=== PATIENT | male | born 1965 | race Caucasian/White ===

== ENCOUNTER 2020-12-29 00:31 | Inpatient (IN) | payer OTHER, SELFPAY ==
[2020-12-29] VITALS (48 sets, daily range): BP systolic 101–176; BP diastolic 60–107; PULSE 43–88; RESP 13–25; TEMP 36–36.8; O2SAT 96–100; BMI 28.8
--- NOTE | 2020-12-29 | EST_ITS ---
Patient Info Name: Jairo Junior Age: 55 years : 1965 Gender: Male Ht: 73 in Wt: 218 lbs BSA: 2.28 m2 HR: 65 bpm BP: 132 / 83 mmHg Heart Rhythm: Sinus Rhythm Exam Date: 12/29/2020 11:15 AM Exam Location: [facility] Stress Patient Status: Outpatient Admit Date: 12/29/2020 Staff Ordering Physician: Maurice Stone DO Attending Provider: Crys Szymanski MD Exercise Technologist: Carmen May CT Exercise Physician: Maurice Stone DO Exam Type: CA stress nisha w NM Study Info Indications R07.9 - Chest pain, unspecified A regadenoson stress test was performed. Summary 1. 1. Negative lexiscan stress test for ischemic ST changes by ECG criteria. 2. 2. Stable hemodynamics throughout the test. 3. 3. Nuclear scan to follow and will be reported separately. Please correlate with it. 4. 4. Patient informed of the above results. Protocol: Lexiscan Stress ECG Details Stage: REST Duration (min): 0 min : 59 sec HR (bpm): 67 SBP (mmHg): 132 DBP (mmHg): 83 Stage: REST Duration (min): 12 min : 31 sec HR (bpm): 70 SBP (mmHg): 132 DBP (mmHg): 83 Stage: STAGE 1 Duration (min): 1 min : 0 sec HR (bpm): 118 SBP (mmHg): 127 DBP (mmHg): 72 Stage: RECOVERY Duration (min): 1 min : 0 sec HR (bpm): 99 SBP (mmHg): 127 DBP (mmHg): 72 Stage: RECOVERY Duration (min): 2 min : 0 sec HR (bpm): 85 SBP (mmHg): 127 DBP (mmHg): 72 Stage: RECOVERY Duration (min): 3 min : 0 sec HR (bpm): 76 SBP (mmHg): 117 DBP (mmHg): 72 Stage: RECOVERY Duration (min): 3 min : 2 sec HR (bpm): 75 SBP (mmHg): 117 DBP (mmHg): 72 Rest HR: 70 bpm Peak HR: 118 bpm Rest Sys BP: 132 mmHg Peak Sys BP: 127 mmHg Max Pred HR: 166 bpm % Max Pred HR: 71 % Target HR: 141 bpm Max RPP: 14,986 bpm*mmHg Termination Reason: Completed protocol Cardiac Symptoms: Shortness of breath Total Time: 1 min : 0 sec Rest Reyes BP: 83 mmHg Peak Reyes BP: 72 mmHg Total Dose: 0.4 mg Resting ECG Sinus rhythm. Stress ECG No ST changes. Arrhythmias None. Report Signatures
--- NOTE | ~2020-12-29 | CT_ITS ---
EXAMINATION: CT soft tissue neck wo con DATE: 12/29/2020 02:35 INDICATION: Throat pain, odynophagia TECHNIQUE: Computed tomography (CT) of the neck was performed without intravenous contrast. The dose- length product (DLP) was 650.87 mGy-cm. Automated exposure control and iterative reconstruction techn ique were employed. COMPARISON: None FINDINGS: There is calcified atherosclerosis of the carotid arteries, left greater than right. Contra st from earlier CT examination partially opacifies the vasculature. The left carotid artery does not opacify beyond its proximal portion. There is left-sided intracranial flow related to collateral circ ulation. The thyroid gland is unremarkable. The submandibular and parotid glands are symmetric. There is no lymphadenopathy. There are no masses identified. The airway is unremarkable. There is moderate cervical spondylosis at C5-6. The orbits are unremarkable. The superior mediastinum is unremarkable. There are changes of partial left mastoidectomy. There is mild mucosal thickening of the paranasal s inuses. IMPRESSION: 1. Findings consistent with occlusion of the left carotid artery. Reviewed, dictated and finalized at location A.
--- NOTE | ~2020-12-29 | NM_ITS ---
EXAMINATION: NM nisha stress w perfusion DATE: 12/29/2020 12:23 INDICATION: Chest pain. TECHNIQUE: Rest images were obtained following intravenous administration of 10 mCi Tc99m tetrofosmin (Myoview). The patient was infused intravenously with Lexiscan (regadenoson). Then, 30 mCi Tc99m tet rofosmin (Myoview) was administered intravenously, and stress images were obtained. Data was reconstr ucted into short axis and horizontal and vertical long axis SPECT images. Gated SPECT images were als o obtained. COMPARISON: Chest CT 12/29/2020 FINDINGS: There is a small, severe, reversible perfusion defect involving mid to basal inferior wall of the left ventricle, consistent with ischemia. There is a small, severe, partially reversible perfu dianelys defect involving mid to basal inferolateral wall of left ventricle, consistent with mixed infarc t and ischemia. There is no segmental wall motion abnormality. Left ventricular ejection fraction me asures >70%. IMPRESSION: 1. Small area of severe ischemia involving mid to basal inferior wall of left ventricle. 2. Small area of severe mixed ischemia and infarct involving mid to basal inferolateral wall of left ventricle. 3. Normal left ventricular ejection fraction measuring >70%. Reviewed, dictated and finalized at location A. IMPRESSION: 1. Small area of severe ischemia involving mid to basal inferior wall of left v entricle. 2. Small area of severe mixed ischemia and infarct involving mid to basal infer olateral wall of left ventricle. 3. Normal left ventricular ejection fraction measuring >70%.
--- NOTE | ~2020-12-29 | XR_ITS ---
EXAMINATION: XR chest 2V DATE: 12/29/2020 01:03 INDICATION: Chest pain and hypertension TECHNIQUE: PA and lateral views of the chest are obtained. COMPARISON: None available FINDINGS: The lungs are free of acute opacities. There is no pleural effusion or pneumothorax. The ca rdiomediastinal silhouette is normal. The visualized bones and soft tissues are unremarkable. IMPRESSION: 1. No acute cardiopulmonary abnormality. Reviewed, dictated and finalized at location A.
--- NOTE | ~2020-12-29 | CT_ITS ---
EXAMINATION: CTA chest DATE: 12/29/2020 02:32 INDICATION: Chest pain TECHNIQUE: Computed tomographic angiography (CTA) of the chest was performed with 100 mL Omnipque-350 intravenous contrast. Maximum intensity projection 3D-reconstructions of the aorta and other arterie s were constructed by the technologist on a separate workstation. The dose-length product (DLP) was 9 27.80 mGy-cm. Automated exposure control and iterative reconstruction technique were employed. COMPARISON: None. FINDINGS: The thoracic aorta is normal without dissection or aneurysm. Calcified coronary artery athe rosclerosis is noted. There is absent flow in the left internal carotid artery approximately 3 cm bey ond its origin. There is dependent atelectasis. No pleural effusion or pneumothorax is identified. No pathologically enlarged thoracic lymph nodes are identified. The heart size is normal. There is mild thoracic spondylosis. IMPRESSION: 1. No aneurysm or dissection of the thoracic aorta. 2. Absent flow beyond the proximal left internal carotid artery. Carotid Doppler ultrasound is recomm ended. Reviewed, dictated and finalized at location A. IMPRESSION: 1. No aneurysm or dissection of the thoracic aorta. 2. Absent flow beyond the proximal left internal carotid artery. Carotid Dopple r ultrasound is recommended.
--- NOTE | ~2020-12-29 | US_ITS ---
EXAMINATION: US carotid duplex BI EXAM DATE: 12/29/2020 12:45 INDICATION: Absent flow beyond proximal left internal carotid. Abnormal pulmonary scan. TECHNIQUE: Grayscale, color and pulsed Doppler images of the cervical carotid arteries were obtained . The degree of vessel stenosis is placed in one of the following categories: normal, <50% stenosis, 50-69% stenosis, >=70% stenosis but less than near-occlusion, near-occlusion, or occlusion. Note that percent stenosis relative to normal distal artery lumen diameter is indirectly measured from velocit y measurements as described by Alex, et al. Radiology 2003; 229:340-346. Correlation is made to CTA chest, CT neck earlier same date. Comparison is made to prior examination from carotid ultrasound 12/08/2012. FINDINGS: RIGHT SIDE: Right common carotid artery peak systolic velocity (PSV in cm/s): 95 Right bulb/internal carotid artery peak systolic velocity (PSV in cm/s): 166 Right internal carotid artery end diastolic velocity (EDV in cm/s): 47 Right ICA/CCA peak systolic ratio: 1.7 Right external carotid artery peak systolic velocity (PSV in cm/s): 155 Right vertebral artery antegrade flow: yes There is mild to moderate carotid bulb plaque with discordant mildly elevated velocity. Visually, less than 50% stenosis category. LEFT SIDE: Left common carotid artery peak systolic velocity (PSV in cm/s): 48 Left bulb/internal carotid artery peak systolic velocity (PSV in cm/s): No flow Left internal carotid artery end diastolic velocity (EDV in cm/s): No flow Left external carotid artery peak systolic velocity (PSV in cm/s): 61 Left vertebral artery antegrade flow: yes There is high resistance common carotid arterial flow. Completely occluded left ICA, likely due to at herosclerosis. In 2013 there was mild to moderate carotid bulb plaque, with normal velocities. IMPRESSION: 1. Less than 50 percent stenosis in the right internal carotid artery. 2. Occluded left internal carotid artery. Reviewed, dictated and finalized at location B.
--- NOTE | 2020-12-29 00:34 | ECG_ITS ---
Measurements Intervals [place] Rate: 58 P: 12 PA: 258 QRS: 64 QRSD: 104 T: 17 QT: 406 QTc: 402 Interpretive Statements SINUS BRADYCARDIA WITH FIRST DEGREE AV BLOCK BASELINE ARTIFACT- II, III, AVF, V3-V6 ABNORMAL ECG Electronically Signed On 12-29-2020 5:39:39 CDT by Maurice Stone D.O.
[2020-12-29 01:13] LABS: Basophils Absolute Auto 0.1 K/mm3 (0.0-0.1); Basophils Percent Auto 0.6 % (0.2-1.2); Eosinophils Absolute Auto 0.6 K/mm3 (0-0.3); Eosinophils Percent Auto 6.5 % (0-4.4); Hematocrit 49.7 % (42.0-52.0); Hemoglobin 16.8 g/dL (14.0-18.0); Immature Granulocyte Absolute 0.02 K/mm3 (0.00-0.031); Immature Granulocyte Percent A 0.2 % (0-0.5); Lymphocytes Absolute Auto 3.36 K/mm3 (0.9-3.2); Lymphocytes Percent Auto 34.9 % (18.3-44.2); Mean Corpuscular HGB Conc 33.8 g/dl (32-36); Mean Corpuscular Hemoglobin 32.1 pg (26-34); Mean Platelet Volume 10.6 fl (7.4-10.4); Monocytes Absolute Auto 0.8 K/mm3 (0.1-0.6); Monocytes Percent Auto 8.2 % (2.6-8.5); Neutrophils Absolute Auto 4.8 K/mm3 (1.3-6.7); Neutrophils Percent Auto 49.6 % (45.5-73.1); Platelet Count Result 230 k/mm3 (150-375); Red Blood Count 5.23 M/mm3 (4.6-6.20); White Blood Count 9.6 K/mm3 (4.5-10.0)
[2020-12-29] MEDS: NITROGLYCERIN SL 0.4 MG TABLET SUBLINGUAL (01:21)
[2020-12-29 01:22] LABS: INR 0.9; Prothrombin Time 11.7 Seconds (11.1-14.7)
[2020-12-29] MEDS: ONDANSETRON INJ 4 MG/2 ML VIAL IV PUSH ×3 (01:22→22:08)
[2020-12-29 01:23] LABS: Partial Thromboplastin Time 28.7 SECONDS (22.3-36.8)
--- NOTE | 2020-12-29 01:28 | PC.NURSE ---
RN administered 1 nitro tab SL pt. reports feeling chest heaviness and nausea. pt. stat up and provided vomit bag. pt. placed in Trendelenburg and RN went to get vorb for 1L NS due to pt. bp dropping from 168/100 to 123/90. 0127 PT. HR dropped to 33. pt. alert and oriented still at this time. 0129 erp at beside. 0130 pt. has 1L NS intiated and pt. states Im feeling better. pt HR 60 BP
[2020-12-29 01:42] LABS: Anion Gap 7 mmol/L (8-16); Blood Urea Nitrogen 24 mg/dL (9-20); Calcium 9.6 mg/dL (8.4-10.2); Carbon Dioxide 27 mmol/L (22-30); Chloride 105 mmol/L (98-107); Estimated CRCL calculation 71 ml/min; Estimated Glomerular Filt Rate > 60; Glucose 117 mg/dL (65-110); Potassium 4.5 mmol/L (3.4-5.0); Sodium 139 mmol/L (137-145)
--- NOTE | 2020-12-29 01:45 | ED.GENADULT ---
HPI - General Adult General Chief complaint: Chest Pain Stated complaint: n/v Time Seen by Provider: 12/29/20 00:46 Source: patient and RN notes reviewed Mode of arrival: ambulatory Limitations: no limitations History of Present Illness HPI narrative: This is a 55 year old male with history of hypertension and hyperlipidemia who presents for evaluation of sore throat, nausea and vomiting. Patient states he has been having sore throat intermittently since Saturday. He states his throat pain has worsened tonight and he had associated weakness, diaphoresis, nausea and vomiting. He states his throat pain was noticeable more when he was exerting himself. He states he was walking and breathing in cold air and it worsened his throat pain. He denies neck pain, cough, headache, runny nose, or fever. He also reports intermittent midsternal chest pressure that has resolved now. Related Data Home Medications Medication Instructions Recorded Confirmed diphenhydramine HCl 25 mg tablet 12.5 mg PO QHS PRN tablet 05/03/20 11/14/20 multivitamin 1 tablet PO DAILY 07/26/20 11/14/20 vitamin B complex 1 tablet PO DAILY 07/26/20 11/14/20 Allergies Allergy/AdvReac Type Severity Reaction Status Date / Time No Known Allergies Allergy Verified 12/29/20 01:17 Review of Systems Review of Systems: All systems reviewed & are unremarkable except as noted in HPI and below Constitutional: Constitutional: Denies chills, Reports fatigue and Denies fever(s) Cardiovascular: Cardiovascular: Reports chest pain and Denies rapid heart rate Respiratory: Respiratory: Denies cough and Reports dyspnea Gastrointestinal: Gastrointestinal: Denies abdominal pain, Reports diarrhea and Reports nausea Neurologic: Denies headache(s) [facility] Past Medical History Medical History (Updated 12/29/20 @ 06:16 by Bianka Rodrigues MD) Asthma Chronic vertigo Enlarged prostate Essential (primary) hypertension Hyperlipidemia Nocturia Ocular migraine Renal agenesis Renal calculus Seasonal allergies TIA (transient ischemic attack) (~2012) Surgical History Surgical History History of colonoscopy with polypectomy (~05/02/17) Dr. Ledezma repeat in 5 years. History of ear surgery (~2010) semicircular canal surgery - left ear Family History Family History (Updated 12/29/20 @ 06:05 by Guillermo Nicole RN) Father Diabetes mellitus Family history of Parkinson's disease Mother Cerebrovascular accident Social History Social History Smoking status: Never smoker Alcohol intake: current Drinks per week: 1 Substance use: never Spiritual care concerns: No Exam Const: General: alert and ill appearing Orientation/consciousness: patient oriented x3 HENMT: Head: normocephalic and atraumatic Face and sinus: face symmetric Mouth: Yes Normal oral and palatal mucosa present, Yes lip normal, Yes oropharynx normal and Yes moist mucous membranes Throat: posterior oropharynx normal, tonsils normal and uvula midline Eyes: Pupils: Equal, round and reactive pupils present EOM: EOMs intact bilaterally Neck: Neck: normal visual inspection and no lymphadenopathy Resp: Effort & Inspection: normal respiratory effort and no retractions Auscultation: clear to auscultation bilaterally Cardio: Rate: regular rate Rhythm: regular rhythm Heart sounds: no murmurs GI: GI Palp: Yes Soft to palpation, No Tenderness to palpation present (GI) and No Guarding due to palpation present (GI) Auscultation: normal bowel sounds Skin: General skin exam: normal color Rashes: no rashes Neuro: General: patient oriented x3, moves all extremities and CN's II-XI intact bilaterally Extrem: General: normal to inspection Psych: Mental Status: mental status grossly normal Affect: normal affect Course Reevaluation(s) Reevaluation #1: Patient was given sublingual
--- NOTE | 2020-12-29 01:53 | ECG_ITS ---
Measurements Intervals [place] Rate: 72 P: -30 CA: 168 QRS: 141 QRSD: 86 T: 149 QT: 368 QTc: 404 Interpretive Statements SINUS RHYTHM RIGHT AXIS DEVIATION LOW QRS VOLTAGE IN LIMB LEADS CANNOT RULE OUT SEPTAL INFARCT, AGE INDETERMINATE BORDERLINE ST-T WAVE ABNORMALITY- ANTEROLAT/HIGH LAT LEADS ABNORMAL ECG Electronically Signed On 12-29-2020 5:40:55 CDT by Maurice Stone D.O.
[2020-12-29 01:58] LABS: Troponin I 0.061 ng/mL (0.000-0.034)
--- NOTE | 2020-12-29 02:24 | PC.NURSE ---
pt.to ct
[2020-12-29] MEDS: MORPHINE SULFATE (*CRX) 4 MG/ML INJ IV PUSH (02:35)
--- NOTE | 2020-12-29 03:49 | PC.NURSE ---
Rn at bedside to draw repeat lab work on pt. pt. became diaphoretic and states I am hypioglycemic Im going to passout. pt. has HR of 33 on monitor. 0348 ERP at bedside. 0349 Pt. placed in Trendelenburg and placed back on cardiac nurse specialist. 0350 HR 53. Pt. alert and oriented x4
[2020-12-29 03:52] LABS: Glucose Point of Care 130 mg/dl (65-105)
--- NOTE | 2020-12-29 04:05 | PM.IMHP ---
H&P: HPI History of Present Illness Date/Time: 12/29/20 04:05 Chief Complaint: CHEST DISCOMFORT Narrative: This is a 55-year-old male with past medical history significant for gastroesophageal reflux disease, ocular migraine, renal agenesis, renal calculus, seasonal allergies. Patient presented to the emergency room after he woke up in the middle of the night with reflux pain', patient states that this started over the weekend he started having retrosternal chest pain and throat pain has been eating a bland diet and had to okay days but then it came back and has been worse he has been taking Mylanta, in emergency room patient received nitro morphine and aspirin which relieved the pain. While the nurse was drawing blood patient had a vasovagal episode where he Aubrey down and pacer pads were placed on him ever since patient has remained in sinus rhythm and heart rate in the 70s at the time of my visit patient states that he has passed out before with blood draws. Patient denies any chest pain at aches section or activities, no leg pain no claudication, no PND no orthopnea, no palpitations, no fevers no chills no rigors no odynophagia or dysphagia however has sensation of something stuck in his throat he is able to swallow his own secretions. Preliminary workup has been essentially nonrevealing. Review of Systems Review of Systems: Reflux pain Constitutional: Constitutional: Denies chills, Denies fatigue, Denies fever(s), Denies lethargy, Denies malaise and Denies weakness Eyes: Eyes: Denies change in vision ENT: Denies dysphagia, Denies vertigo, Denies dizziness, Denies nasal congestion, Denies nasal discharge, Denies nasal obstruction and Denies odynophagia Cardiovascular: Cardiovascular: Denies chest pain at rest, Denies irregular heart rhythm, Denies claudication, Denies leg edema, Denies lightheadedness, Denies radiating jaw, neck or arm pain, Denies palpitations, Denies dyspnea and Denies dyspnea on exertion Respiratory: Respiratory: Denies cough, Denies excessive phlegm production and Denies dyspnea Gastrointestinal: Gastrointestinal: Denies abdominal pain, Reports heartburn, Reports diarrhea, Denies nausea and Denies vomiting Genitourinary: Genitourinary: Reports as per HPI Musculoskeletal: Musculoskeletal: Denies arthralgias, Denies joint swelling and Denies muscle cramps Integumentary/Breasts: Skin/Breast: Denies rash Neurologic: Denies vertigo, Denies dizziness, Denies focal weakness and Denies Sensory deficit (Neuro) Psychiatric: Psychiatric: Reports as per HPI Endocrine: Endocrine: Denies polyphagia, Denies polydipsia and Denies palpitations Hematologic/Lymphatic: Hematologic/Lymphatic: Reports as per HPI Allergic/Immunologic: Allergic/Immunologic: Reports as per HPI PMFSH Past Medical History Medical History (Updated 12/29/20 @ 04:52 by Crys Szymanski MD) Asthma Chronic vertigo Enlarged prostate Essential (primary) hypertension Hyperlipidemia Nocturia Ocular migraine Renal agenesis Renal calculus Seasonal allergies TIA (transient ischemic attack) (~2012) Surgical History Surgical History History of colonoscopy with polypectomy (~05/02/17) Dr. Ledezma repeat in 5 years. History of ear surgery (~2010) semicircular canal surgery - left ear Family History Family History Father Diabetes mellitus Family history of Parkinson's disease Social History Social History Smoking status: Never smoker Alcohol intake: current Meds Home Medications and Allergies Home Medications Medication Instructions Recorded Confirmed Type aspirin 325 mg tablet 325 mg PO DAILY 05/03/20 11/14/20 History diphenhydramine HCl 25 mg tablet 12.5 mg PO QHS PRN tablet 05/03/20 11/14/20 History multivitamin 1 tablet PO DAILY 07/26/20 11/14/20 History vitam
[2020-12-29] MEDS: ASPIRIN 81 MG CHEWABLE TABLET 324 MG PO (04:10)
[2020-12-29 04:38] LABS: Troponin I 0.089 ng/mL (0.000-0.034)
[2020-12-29] MEDS: BELLADONNA ALK/PHENOB ELIX 10 ML, MAG HYDROX/ALUMINUM HYD/SIMETH 30 ML, LIDOCAINE HCL 2... PO (04:48)
[2020-12-29] MEDS: PANTOPRAZOLE SODIUM IV 40 MG VIAL 80 MG IV PUSH (04:51)
--- NOTE | 2020-12-29 06:49 | PM.CNCAR ---
Assessment and Plan Assessment and plan (1) Chest pain: Code(s): R07.9 - Chest pain, unspecified Status: Acute Assessment and Plan: Atypical symptoms for ACS. Could be GERD. Troponin mild but trending up. Follow troponin to peak. EKG unremarkable. Obtain lexiscan myoview stress test and echo. (2) Vasovagal episode: Code(s): R55 - Syncope and collapse Status: Acute Assessment and Plan: Stable. (3) GERD (gastroesophageal reflux disease): Code(s): K21.9 - Gastro-esophageal reflux disease without esophagitis Status: Acute (4) Essential (primary) hypertension: Code(s): I10 - Essential (primary) hypertension Status: Acute Assessment and Plan: Stable. (5) Hyperlipidemia: Qualifiers: Hyperlipidemia type: unspecified Qualified Code(s): E78.5 - Hyperlipidemia, unspecified Code(s): E78.5 - Hyperlipidemia, unspecified Status: Acute Assessment and Plan: On Lovastatin. History of Present Illness History of Present Illness Consult date/time: 12/29/20 06:49 Reason for consult: Chest pain. 55 yr old man presented to ER for chest pain. He has a history of hypertension, dyslipidemia, GERD. Reports that for the last 7 days he has been having chest burning sensation and discomfort when lying down. Pain radiated to his throat and jaw. He had a recent chip tooth requiring a crown. He would sit up and it would improve, and then he would take Mylanta and it would help. Last night however, his symptoms did not improve with either maneuver so he came in to ER. Symptoms have currently resolved with morphine, NTG and aspirin. He did have diarrhea last night. He can walk several blocks without any problems. In ED while drawing his blood, he had a vasovagal episode where his HR dropped to 30's bpm for a couple of minutes. He states he has that problem in the past. Trop .061 then .089. EKG: Sinus rhythm. CBC and CMP are OK. CTA neck and chest are pending. Reason For Visit: elevated troponin, intermittent cristino cardia with Review of Systems Review of Systems: All systems reviewed & are unremarkable except as noted in HPI and below Constitutional: Constitutional: Reports as per HPI, Denies chills and Denies fever(s) Cardiovascular: Cardiovascular: Reports as per HPI, Reports chest pain, Denies irregular heart rhythm, Denies leg edema and Denies lightheadedness Respiratory: Respiratory: Reports as per HPI and Denies dyspnea Gastrointestinal: Gastrointestinal: Reports as per HPI, Denies abdominal pain, Reports heartburn and Reports diarrhea Genitourinary: Genitourinary: Reports as per HPI and Denies dysuria Musculoskeletal: Musculoskeletal: Reports as per HPI Neurologic: Reports as per HPI, Denies dizziness and Denies syncope [facility] Past Medical History Medical History (Updated 12/29/20 @ 06:16 by Bianka Rodrigues MD) Asthma Chronic vertigo Enlarged prostate Essential (primary) hypertension Hyperlipidemia Nocturia Ocular migraine Renal agenesis Renal calculus Seasonal allergies TIA (transient ischemic attack) (~2012) Surgical History Surgical History History of colonoscopy with polypectomy (~05/02/17) Dr. Ledezma repeat in 5 years. History of ear surgery (~2010) semicircular canal surgery - left ear Family History Family History (Updated 12/29/20 @ 06:05 by Guillermo Nicole RN) Father Diabetes mellitus Family history of Parkinson's disease Mother Cerebrovascular accident Social History Social History Smoking status: Never smoker Alcohol intake: current Drinks per week: 1 Substance use: never Spiritual care concerns: No Meds Home Medications and Allergies Home Medications Medication Instructions Recorded Confirmed Type diphenhydramine HCl 25 mg tablet 12.5 mg PO QHS PRN tabl
[2020-12-29] MEDS: LACTATED RINGERS 1,000 ML 100 ML IV CONT ×2 (10:20→22:08)
--- NOTE | 2020-12-29 12:24 | WPDCNINT ---
Assessment and Plan Assessment and plan (1) Chest pain: Code(s): R07.9 - Chest pain, unspecified Status: Acute Assessment and Plan: Chest pain with radiation to the jaw and throat -12/29/20: NM stress scan was positive Small area of severe ischemia involving mid to basal inferior wall of left ventricle. 2. Small area of severe mixed ischemia and infarct involving mid to basal inferolateral wall of left ventricle. 3. Normal left ventricular ejection fraction measuring >70% D/w with Dr Stone, updated with the above results, he stated that patient will require cardiac catheterization, will be discussing with heart care group. Will keep patient NPO for now, start heparin infusion and aspirin (2) Bradycardia: Code(s): R00.1 - Bradycardia, unspecified Status: Acute Assessment and Plan: Patient with episodes of bradycardia be related to vasovagal add or ischemic heart disease -will hold beta-shane for now due to bradycardic episodes (3) GERD (gastroesophageal reflux disease): Code(s): K21.9 - Gastro-esophageal reflux disease without esophagitis Status: Acute Assessment and Plan: Continue Protonix (4) Occlusion of left internal carotid artery: Code(s): I65.22 - Occlusion and stenosis of left carotid artery Status: Acute Assessment and Plan: 12/29/2020 Carotid Doppler study: Occluded left internal carotid artery, less than 50% stenosis in the right internal carotid artery -patient started on heparin infusion -once patient has his cardiac workup done he to be transferred for vascular surgery to an outside facility (5) Suspected 2019 novel coronavirus infection: Code(s): Z20.822 - Contact with and (suspected) exposure to COVID-19 Status: Acute Assessment and Plan: SARS-CoV-2 PCR pending Additional Plan Discussed with patient updated with his condition and plan of care. He is aware that he will be getting a cardiac catheterization at some point today or tomorrow depending on the availability of the art gilder Code status: Full code Critical care time spent: 47 minutes This dictation may have been done utilizing a voice recognition system. Attempts have been made to correct errors. However, there may be uncorrected grammatical, spelling, and recognition errors present. Due to a high probability of clinically significant, life threatening deterioration, the patient required my highest level of preparedness to intervene emergently and I personally spent this critical care time directly and personally managing the patient. This critical care time included obtaining a history; examining the patient; pulse oximetry; ordering and review of studies; arranging urgent treatment with development of a management plan; evaluation of patient's response to treatment; frequent reassessment; and discussions with other providers. It was exclusive of separately billable procedures and treating other patients and teaching time. Please see Assessment and Plan section and the rest of the note for further information on patient assessment and treatment Equipment [id number] Consult Note Consult date: 12/29/20 Time Seen: 06:55 Reason for consult: Chest pain, bradycardia, left carotid artery occlusion HPI: Jairo Junior is a 55 year old male with past medical history of asthma, vertigo, and large prostate, essential hypertension, hyperlipidemia, nocturia, migraine, renal agenesis, TIA in 2012 presented to the ED on 12/29/2020 with complains of chest pain/heartburn, nausea and vomiting along with sore throat. Stated that the pain radiates to his throat and jaw. He stated that his chest pain improved when he would sit up and when he took Mylanta. Chest pain resolved with morphine, nitroglycerin aspirin. He also complained of diarrhea. In the ER was the withdrawing his blood patient did have an episode of bradycardia in the 30s instead resolved. According the records patient sta
[2020-12-29] MEDS: HEPARIN SODIUM 5,000 UNITS/ML VIAL 4000 UNITS IV PUSH (13:19)
[2020-12-29] MEDS: HEPARIN SOD/D5W 100 UNITS/ML 25,000 UNITS/250 ML BAG 10 UNITS IV CONT (13:20)
[2020-12-29 13:34] LABS: Basophils Percent Auto 0.3 % (0.2-1.2); Eosinophils Percent Auto 0.1 % (0-4.4); Hematocrit 46.7 % (42.0-52.0); Hemoglobin 16.2 g/dL (14.0-18.0); Immature Granulocyte Absolute 0.02 K/mm3 (0.00-0.031); Immature Granulocyte Percent A 0.2 % (0-0.5); Lymphocytes Absolute Auto 0.99 K/mm3 (0.9-3.2); Lymphocytes Percent Auto 9.8 % (18.3-44.2); Mean Corpuscular HGB Conc 34.7 g/dl (32-36); Mean Corpuscular Hemoglobin 33.1 pg (26-34); Mean Corpuscular Volume 95.5 fl (80-100); Mean Platelet Volume 10.5 fl (7.4-10.4); Monocytes Absolute Auto 0.4 K/mm3 (0.1-0.6); Monocytes Percent Auto 3.8 % (2.6-8.5); Neutrophils Absolute Auto 8.7 K/mm3 (1.3-6.7); Neutrophils Percent Auto 85.8 % (45.5-73.1); Platelet Count Result 213 k/mm3 (150-375); Red Blood Count 4.89 M/mm3 (4.6-6.20); Red Cell Distribution Width 11.9 % (11.5-14.5); White Blood Count 10.1 K/mm3 (4.5-10.0)
[2020-12-29] MEDS: LOSARTAN POTASSIUM 100 MG TABLET PO (13:38)
[2020-12-29 13:55] LABS: INR 0.9; Partial Thromboplastin Time 24.7 SECONDS (22.3-36.8); Prothrombin Time 12.2 Seconds (11.1-14.7)
[2020-12-29 17:33] LABS: SARS-CoV-2 RNA PCR Negative
[2020-12-29 19:47] LABS: Partial Thromboplastin Time 65.3 SECONDS (22.3-36.8)
[2020-12-29] MEDS: HEPARIN SODIUM 5,000 UNITS/ML VIAL 3500 UNITS IV PUSH (21:23)
[2020-12-30] VITALS (19 sets, daily range): BP systolic 121–138; BP diastolic 63–110; PULSE 61–74; RESP 14–22; TEMP 36.3–37.2; O2SAT 95–99
--- NOTE | 2020-12-30 | ECHO_ITS ---
Patient Info Name: Jairo Junior Age: 55 years : 1965 Gender: Male Ht: 73 in Wt: 218 lbs BSA: 2.28 m2 BP: 121 / 72 mmHg Exam Date: 12/30/2020 8:26 AM Exam Location: [facility] Pulmonary Patient Status: Outpatient Admit Date: 12/29/2020 Staff Ordering Physician: Maurice Stone DO Director Of Anesthesia Services: Praful Reynoso RDCS, RT Attending Provider: Crys Szymanski MD Referring Physician: Chase HU; Exam Type: CA echo doppler color flow Study Info Indications R07.9 - Chest pain, unspecified Complete two-dimensional, color flow and Doppler transthoracic echocardiogram is performed. Strain analysis performed. Summary 1. Complete two-dimensional, color flow and Doppler transthoracic echocardiogram is performed. 2. Left ventricular chamber dimension is normal. 3. Definity contrast administered improved wall motion interpretation. 4. Basal inferior wall and basal to mid posterior wall segments are hypokinetic. 5. Left ventricular systolic function is normal, estimated at 60-65%. 6. There is mildly increased left ventricular wall thickness. 7. The left ventricular diastolic function is grade I diastolic dysfunction. 8. E/e' 9 is minimally elevated. 9. Global longitudinal strain is abnormal at -12.2%. 10. There is moderate aortic valve sclerosis. 11. There is mild aortic valve regurgitation. 12. There is mild mitral valve regurgitation. 13. There is trace tricuspid valve regurgitation. 14. There is trace pulmonic regurgitation. Left Ventricle Definity contrast administered improved wall motion interpretation. E/e' 9 is minimally elevated. Global longitudinal strain is abnormal at -12.2%. Basal inferior wall and basal to mid posterior wall segments are hypokinetic. Left ventricular chamber dimension is normal. Left ventricular systolic function is normal, estimated at 60-65%. There is mildly increased left ventricular wall thickness. The left ventricular diastolic function is grade I diastolic dysfunction. Right Ventricle Right ventricular systolic function is normal and with normal TAPSE 2.7 cm. Right ventricular chamber dimension is normal. Left Atria Left atrial chamber dimension is normal. Right Atria Right atrial chamber dimension is normal. Aortic Valve The aortic valve is trileaflet. There is moderate aortic valve sclerosis. There is no aortic valve stenosis. There is mild aortic valve regurgitation. Pulmonic Valve There is trace pulmonic regurgitation. Mitral Valve There is no mitral valve stenosis. There is mild mitral valve regurgitation. Tricuspid Valve There is trace tricuspid valve regurgitation. RVSP is not calcuated due to an inadequate TR jet. Pericardium/Pleural There is no pericardial effusion. Inferior Vena Cava Normal inferior vena cava with >50% collapse upon inspiration consistent with normal right atrial pressure, 5 mmHg. Aorta The aortic root size at the sinus of Valsalva is normal. Left Ventricular Outflow Tract Name Value Normal LVOT 2D LVOT Diameter 2.0 cm LVOT Doppler LVOT Peak Gradient 3 mmHg LVOT Mean Gradient
[2020-12-30 04:08] LABS: Basophils Percent Auto 0.3 % (0.2-1.2); Eosinophils Absolute Auto 0.1 K/mm3 (0-0.3); Eosinophils Percent Auto 0.8 % (0-4.4); Hematocrit 43.8 % (42.0-52.0); Hemoglobin 14.8 g/dL (14.0-18.0); Immature Granulocyte Absolute 0.04 K/mm3 (0.00-0.031); Immature Granulocyte Percent A 0.3 % (0-0.5); Lymphocytes Absolute Auto 2.14 K/mm3 (0.9-3.2); Lymphocytes Percent Auto 17.8 % (18.3-44.2); Mean Corpuscular HGB Conc 33.8 g/dl (32-36); Mean Corpuscular Hemoglobin 32.2 pg (26-34); Mean Corpuscular Volume 95.2 fl (80-100); Mean Platelet Volume 10.7 fl (7.4-10.4); Monocytes Absolute Auto 0.8 K/mm3 (0.1-0.6); Monocytes Percent Auto 6.6 % (2.6-8.5); Neutrophils Absolute Auto 8.9 K/mm3 (1.3-6.7); Neutrophils Percent Auto 74.2 % (45.5-73.1); Platelet Count Result 203 k/mm3 (150-375); Red Cell Distribution Width 12.3 % (11.5-14.5); White Blood Count 12.1 K/mm3 (4.5-10.0)
[2020-12-30 04:20] LABS: Partial Thromboplastin Time 98.9 SECONDS (22.3-36.8)
--- NOTE | 2020-12-30 07:57 | PM.PNCARD ---
Progress Note: A&P Assessment and Plan (1) Chest pain: Code(s): R07.9 - Chest pain, unspecified Status: Acute Assessment and Plan: Atypical symptoms for ACS, but results say otherwise. Troponin continues to trend up to 0.4. Check Troponin this morning. Nuclear stress test shows inferior, inferolateral ischemia. EKG unremarkable. On aspirin and Atorvastatin. Obtain echo. Risks/benefits/alternative treatment to left heart cath discussed with patient and he is agreeable to procedure. Keep NPO for it. Notified HCG for procedure and will have it today. (2) Vasovagal episode: Code(s): R55 - Syncope and collapse Status: Acute Assessment and Plan: Stable. Not on beta shane as he had episodes of transient bradycardia, one related to a blood draw but second one was unprovoked. (3) GERD (gastroesophageal reflux disease): Code(s): K21.9 - Gastro-esophageal reflux disease without esophagitis Status: Acute (4) Essential (primary) hypertension: Code(s): I10 - Essential (primary) hypertension Status: Acute Assessment and Plan: Stable. (5) Hyperlipidemia: Qualifiers: Hyperlipidemia type: unspecified Qualified Code(s): E78.5 - Hyperlipidemia, unspecified Code(s): E78.5 - Hyperlipidemia, unspecified Status: Acute Assessment and Plan: On Lovastatin. (6) Occlusion of left internal carotid artery: Code(s): I65.22 - Occlusion and stenosis of left carotid artery Status: Acute Subjective Date/time seen: 12/30/20 07:57 Denies chest pain but has persistent throat pain. No SOB. No longer having diarrhea. Exam Const: General: cooperative, healthy appearing and comfortable Resp: Auscultation: clear to auscultation bilaterally, no crackles, no rales, no rhonchi and no wheezes Cardio: Jugular venous distension: no JVD Rate: regular rate Rhythm: regular rhythm Heart sounds: no murmurs Peripheral pulses: dorsalis pedis present GI: GI Palp: No abdominal tenderness and Yes Soft to palpation Neuro: General: oriented to person, oriented to place and oriented to time Extrem: Right lower extremity: no edema Left lower extremity: no edema Objective Data Vital Signs Vital Signs: Vital Signs - 24 hr 12/29/20 08:00 12/29/20 10:00 12/29/20 12:00 Temperature 97.5 F L 96.9 F L Pulse Rate 74 72 81 Respiratory Rate 20 16 25 H Blood Pressure 138/89 137/83 155/92 H Pulse Oximetry 96 98 98 12/29/20 13:39 12/29/20 14:00 12/29/20 16:00 Temperature 97.1 F L Pulse Rate 88 57 L Respiratory Rate 23 H 18 Blood Pressure 144/88 H 101/60 Pulse Oximetry 98 97 99 12/29/20 18:00 12/29/20 20:00 12/29/20 22:00 Temperature 96.8 F L Pulse Rate 68 78 61 Respiratory Rate 16 18 18 Blood Pressure 124/78 130/73 120/70 Pulse Oximetry 98 97 98 12/29/20 22:05 12/29/20 23:53 12/29/20 23:55 Temperature 96.8 F L Pulse Rate 65 Respiratory Rate 16 Blood Pressure 122/80 Pulse Oximetry 98 96 98 12/30/20 00:00 12/30/20 01:39 12/30/20 04:00 Temperature 97.3 F L Pulse Rate 67 66 66 Respiratory Rate 16 16 Blood Pressure 122/78 121/72 Pulse Oximetry 95 96 12/30/20 06:00 Temperature Pulse Rate 67 Respiratory Rate 16 Blood Pressure 130/79 Pulse Oximetry 96 Intake/Output Intake/Output: Intake & Output 12/27/20 12/28/20 12/29/20 12/30/20 23:59 23:59 23:59 23:59 Intake Total 1884.7 Output Total 1200 2100 Balance 684.7 -2100 Meds/Results Medications: Active Medications Generic Name Dose Route Start Last Admin Trade Name Freq PRN Reason Stop Dose Admin Aspirin 81 mg 12/30/20 08:00 Aspirin 81 Mg Chewable Tablet PO DAILY@0800 [facility] Atorvastatin Calcium 80 mg 12/30/20 09:00 Atorvastatin 40 Mg Tablet PO DAILY [facility] Heparin Sodium (Porcine) 4,000 units 12/29/20 12:44 Heparin Sodium 5,000 Units/Ml Vial IV PUSH PRN PRN aPTT less than 55 seconds
[2020-12-30 08:07] LABS: Alanine Aminotransferase 57 U/L (4-50); Albumin Level 3.7 g/dL (3.5-5.1); Alkaline Phosphatase 69 U/L (38-126); Anion Gap 8 mmol/L (8-16); Aspartate Amino Transferase 90 U/L (17-59); Bilirubin,Total 0.3 mg/dL (0.2-1.3); Blood Urea Nitrogen 18 mg/dL (9-20); Calcium 8.6 mg/dL (8.4-10.2); Carbon Dioxide 23 mmol/L (22-30); Chloride 110 mmol/L (98-107); Estimated CRCL calculation 77 ml/min; Estimated Glomerular Filt Rate > 60; Glucose 109 mg/dL (65-110); Sodium 141 mmol/L (137-145)
[2020-12-30 08:14] LABS: Magnesium 2.3 mg/dL (1.6-2.3); Phosphorus 3.2 mg/dL (2.5-4.5)
[2020-12-30] MEDS: LOSARTAN POTASSIUM 100 MG TABLET PO (08:31)
[2020-12-30] MEDS: PANTOPRAZOLE 40 MG TABLET PO (08:31)
[2020-12-30] MEDS: ATORVASTATIN 40 MG TABLET 80 MG PO (08:31)
[2020-12-30] MEDS: ONDANSETRON INJ 4 MG/2 ML VIAL IV PUSH ×2 (08:31→13:22)
[2020-12-30] MEDS: ASPIRIN 81 MG CHEWABLE TABLET PO (08:32)
[2020-12-30] MEDS: LACTATED RINGERS 1,000 ML 100 ML IV CONT (08:32)
[2020-12-30] MEDS: PERFLUTREN LIPID MICROSPHERES 1.5 ML VIAL DILUTED TO 10 ML TOTAL VOLUME IV PUSH (08:53)
--- NOTE | 2020-12-30 10:10 | WPDMODSED ---
Moderate Sedation Note-Pt Data Patient Data Diagnosis: Chest pain syndrome felt to be atypical of angina abnormal stress test troponin elevation consistent with non STEMI Present Complaint: comfortable this morning Procedure to be performed/Plan: left heart catheterization Allergies Allergy/AdvReac Type Severity Reaction Status Date / Time No Known Allergies Allergy Verified 12/29/20 01:17 Home Medications Medication Instructions Recorded Confirmed Type diphenhydramine HCl 25 mg tablet 12.5 mg PO QHS PRN tablet 05/03/20 12/29/20 History multivitamin 1 tablet PO DAILY 07/26/20 12/29/20 History vitamin B complex 1 tablet PO DAILY 07/26/20 12/29/20 History lovastatin 40 mg tablet 40 mg PO DAILY #90 tablet 10/24/20 12/29/20 Rx losartan 100 mg tablet 100 mg PO DAILY #90 tablet 12/15/20 12/29/20 Rx Current Medications: Active Medications Aspirin (Aspirin 81 Mg Chewable Tablet) 81 mg PO DAILY@0800 [facility] Last Admin: 12/30/20 08:32 Dose: 81 mg Documented by: Atorvastatin Calcium (Atorvastatin 40 Mg Tablet) 80 mg PO DAILY [facility] Last Admin: 12/30/20 08:31 Dose: 80 mg Documented by: Heparin Sodium (Porcine) (Heparin Sodium 5,000 Units/Ml Vial) 4,000 units IV PUSH PRN PRN PRN Reason: aPTT less than 55 seconds Heparin Sodium (Porcine) (Heparin Sodium 5,000 Units/Ml Vial) 3,500 units IV PUSH PRN PRN PRN Reason: aPTT 55 - 70 seconds Last Admin: 12/29/20 21:23 Dose: 3,500 units Documented by: Lactated Ringer's (Lr - Lactated Ringers Iv) 1,000 mls @ 100 mls/hr IV CONT .Q10H [facility] Last Admin: 12/30/20 08:32 Dose: 100 mls/hr Documented by: Heparin Sodium/Dextrose (Heparin Sodium/D5w 100 Units/Ml) 25,000 units in 250 mls @ 12 mls/hr IV CONT .[id number] [facility]; Protocol Last Titration: 12/30/20 04:31 Dose: 1,200 units/hr, 12 mls/hr Documented by: Losartan Potassium (Losartan Potassium 100 Mg Tablet) 100 mg PO DAILY [facility] Last Admin: 12/30/20 08:31 Dose: 100 mg Documented by: Morphine Sulfate (Morphine Sulfate (*Crx) 4 Mg/Ml Inj) 4 mg IV PUSH Q2H PRN PRN Reason: Pain Rated 7-10 Ondansetron HCl (Ondansetron Inj 4 Mg/2 Ml Vial) 4 mg IV PUSH Q4H PRN PRN Reason: Nausea Last Admin: 12/30/20 08:31 Dose: 4 mg Documented by: Pantoprazole Sodium (Pantoprazole 40 Mg Tablet) 40 mg PO QAM [facility] Last Admin: 12/30/20 08:31 Dose: 40 mg Documented by: Sedation/Anesthesia: No previous sedation/anesthesia problems (including family history). [facility] Past Medical History Medical History (Updated 12/29/20 @ 13:05 by Yesenia Wright MD) Asthma Chronic vertigo Enlarged prostate Essential (primary) hypertension Hyperlipidemia Nocturia Ocular migraine Renal agenesis Renal calculus Seasonal allergies TIA (transient ischemic attack) (~2012) Surgical History Surgical History History of colonoscopy with polypectomy (~05/02/17) Dr. Ledezma repeat in 5 years. History of ear surgery (~2010) semicircular canal surgery - left ear Family History Family History (Updated 12/29/20 @ 06:05 by Guillermo Nicole RN) Father Diabetes mellitus Family history of Parkinson's disease Mother Cerebrovascular accident Social History Social History Smoking status: Never smoker Alcohol intake: current Drinks per week: 1 Substance use: never Spiritual care concerns: No Mod Sed Physical Exam Physical Exam Pre Procedural Exam: Normal: Appearance, Neck, Throat, Airway, Lungs, Heart Size, Heart Rate, Heart Rhythm and Extremities Hours since solid foods: 12 Hours since liquid intake: 12 Mallampati Classification: class II Internal Medicine - PN: Obj Da Vital Signs Vital Signs: Vital Signs - 24 hr 12/29/20 12:00 12/29/20 13:39 12/29/20 14:00 Temperature 36.1 C L Pulse Rate 81 88 Respiratory Rate 25 H 23 H Blood Pressure 155/92 H 144/88 H Pulse Oximetry 98 98 97 12/29/20 16:00 12/29/20 18:
--- NOTE | 2020-12-30 10:53 | WPDINTPN ---
Progress Note: A&P Assessment and Plan (1) Chest pain: Code(s): R07.9 - Chest pain, unspecified Status: Acute Assessment and Plan: Chest pain with radiation to the jaw and throat likely related to ACS with positive Lexiscan and elevated troponins this morning -12/29/20: NM stress scan was positive Small area of severe ischemia involving mid to basal inferior wall of left ventricle. 2. Small area of severe mixed ischemia and infarct involving mid to basal inferolateral wall of left ventricle. 3. Normal left ventricular ejection fraction measuring >70% D/w with Dr Stone, updated with the above results, Will keep patient NPO for now, start heparin infusion and aspirin Pt has gone for a cardiac cath this am after his troponin were elevated to 7.2 (2) Bradycardia: Code(s): R00.1 - Bradycardia, unspecified Status: Acute Assessment and Plan: Patient with episodes of bradycardia be related to vasovagal add or ischemic heart disease -will hold beta-shane for now due to bradycardic episodes (3) GERD (gastroesophageal reflux disease): Code(s): K21.9 - Gastro-esophageal reflux disease without esophagitis Status: Acute Assessment and Plan: Continue Protonix (4) Occlusion of left internal carotid artery: Code(s): I65.22 - Occlusion and stenosis of left carotid artery Status: Acute Assessment and Plan: 12/29/2020 Carotid Doppler study: Occluded left internal carotid artery, less than 50% stenosis in the right internal carotid artery -patient started on heparin infusion -once patient has his cardiac workup done he to be transferred for vascular surgery to an outside facility (5) Suspected 2019 novel coronavirus infection: Code(s): Z20.822 - Contact with and (suspected) exposure to COVID-19 Status: Acute Assessment and Plan: SARS-CoV-2 PCR Negative Additional Plan Discussed with patient updated with his condition and plan of care. He is aware that he will be getting a cardiac catheterization at some point today Code status: Full code Critical care time spent: 34 minutes This dictation may have been done utilizing a voice recognition system. Attempts have been made to correct errors. However, there may be uncorrected grammatical, spelling, and recognition errors present. Due to a high probability of clinically significant, life threatening deterioration, the patient required my highest level of preparedness to intervene emergently and I personally spent this critical care time directly and personally managing the patient. This critical care time included obtaining a history; examining the patient; pulse oximetry; ordering and review of studies; arranging urgent treatment with development of a management plan; evaluation of patient's response to treatment; frequent reassessment; and discussions with other providers. It was exclusive of separately billable procedures and treating other patients and teaching time. Please see Assessment and Plan section and the rest of the note for further information on patient assessment and treatment Subjective Date/time seen: 12/30/20 10:53 Interval history: Reason for consult: Chest pain, bradycardia, left carotid artery occlusion, ACS 12/30/2020: Patient seen and examined the ICU this morning. Patient states he feels better, urine output has been adequate hemodynamically stable, currently on room air with good O2 sats, afebrile. No episodes of bradycardia. Troponin this morning is 7.20. Patient denies any chest pain, shortness of breath, abdominal pain, nausea, vomiting or diarrhea Review of Systems Review of Systems: All systems reviewed & are unremarkable except as noted in HPI and below Exam Const: General: comfortable and no acute distress HENMT: Mouth: Yes moist mucous membranes Eyes: Sclera: sclerae normal Pupils: Equal, round and reactive pupils present Neck: Thyroid: thyroid normal Lymp
--- NOTE | 2020-12-30 11:02 | WPDCARDPROC ---
Cardiac Cath Procedure Note Date of procedure:: 12/30/20 Performing physician:: Harshad Clarke MD Indication:: acute coronary syndrome/ non ST elevation [place] Brief clinical history:: this is a 55-year-old man without previous history of coronary disease he entered the hospital with intermittent symptoms of neck and throat pain that were felt to be atypical of ischemia. Stress testing however was abnormal and troponin levels have risen significantly this morning. In this setting and angiogram has been recommended. Procedure Procedure performed:: Left ventriculography coronary angiography PCI(MESSI) to distal RCA Sedation/Medication given:: fentanyl 50 mg Versed and 2 mg case start time 10:19 a.m. case end time 10:57 a.m. sedation provided by Floresita Terry RN, trained observer Access site:: right femoral artery Estimated blood loss:: 20-30 cc Procedure note:: patient was brought to the cardiac catheterization lab in the postabsorptive state the right femoral triangle was prepared and draped in the usual fashion. Anesthesia was given with 1% lidocaine infiltrated locally. Using the modified Seldinger technique a 5 [place] sheath was placed into the right femoral artery. Left heart catheterization was then carried out. I used a 5 [place] angled pigtail catheter to engage and inject the left coronary artery in the HARRIS projection and to document left-sided hemodynamics. Following this I used a standard 5 [place] FL4 catheter engage and inject the left coronary artery and then a standard 5 [place] JR4 catheter to engage and inject the right coronary artery. Cineangiograms were reviewed and PCI of the right coronary artery was recommended and carried out as detailed below. Prior to PCI the 5 [place] sheath was changed over a guidewire to a 6 [place] device. He was systemically anticoagulated with bolus and infusion of Angiomax and received aspirin and 180 mg of oral Brilinta prior to PCI. Following this the case was terminated the sheath was sutured into position the patient was taken back to the ICU room 7. 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 Hemodynamics: Central aortic pressure is 150/2 end-diastolic pressure 16 left ventricle 132 over 68. There is approximately 18 mm transvalvular gradient on pullback across the aortic valve. Left ventricle: Left ventricle is normal in size the posterior basal segment is akinetic the remainder of the LV contracts nicely the global ejection fraction is visually estimated to be 65%. The left main coronary artery is nicely patent. The left anterior descending is a moderate to large caliber vessel extending down to around the apex. The majority of the LAD and its major diagonal and septal branches are angiographically normal. There is a 80% stenosis in the distal LAD just prior to the apex. Circumflex is a medium caliber artery giving rise to the marginal branches the circumflex system has no significant atherosclerosis the right coronary artery is moderate caliber and dominant to the posterior circulation the right coronary artery is 100% occluded in its 3rd portion. There is collateral filling from the left to the right coronary artery to the RPDA and RPL system. The appearance of the total occlusion is suggestive of a recent thrombotic occlusion. Intervention: The right coronary artery was engaged with a 6 [place] JR4 guiding catheter. I used a 0.014 BMW coronary guidewire to probe the occluded segment and was able to successfully cross this into the distal RCA / RPDA. I pre-dilated the total occlusion with a 2.5 x 20 mm emerge balloon restoring DONNA 3 flow into the distal RCA branches. The target lesion was then re-evaluated and stented using a 3 x 22 mm adflyer sirolimus eluting stent with an excellent anatomical result. There was some haziness distal to the stent most
--- NOTE | 2020-12-30 11:12 | ECG_ITS ---
Measurements Intervals [place] Rate: 63 P: 45 MS: 154 QRS: 42 QRSD: 90 T: 1 QT: 371 QTc: 380 Interpretive Statements SINUS RHYTHM NONSPECIFIC T-WAVE ABNORMALITY- INFERIOR LEADS BORDERLINE ECG Electronically Signed On 12-30-2020 13:06:35 CDT by Maurice Stone D.O.
[2020-12-30] MEDS: METOPROLOL SUCCINATE EXT REL 25 MG TABCR PO (13:15)
[2020-12-30] MEDS: SODIUM CHLORIDE 0.9% IV 1,000 ML 125 ML IV CONT (13:16)
[2020-12-30] MEDS: MORPHINE SULFATE (*CRX) 4 MG/ML INJ IV PUSH ×2 (15:38→20:41)
--- NOTE | 2020-12-30 15:51 | PC.NURSE ---
[facility] flyer was given to patient.
[2020-12-30] MEDS: TICAGRELOR 90 MG TABLET PO (20:45)
[2020-12-31] VITALS (9 sets, daily range): BP systolic 112–133; BP diastolic 65–78; PULSE 62–90; RESP 18; TEMP 36.8–36.9; O2SAT 96–99
[2020-12-31 04:31] LABS: Basophils Percent Auto 0.5 % (0.2-1.2); Eosinophils Absolute Auto 0.2 K/mm3 (0-0.3); Eosinophils Percent Auto 2.7 % (0-4.4); Hematocrit 44.1 % (42.0-52.0); Immature Granulocyte Absolute 0.03 K/mm3 (0.00-0.031); Immature Granulocyte Percent A 0.3 % (0-0.5); Lymphocytes Absolute Auto 1.55 K/mm3 (0.9-3.2); Lymphocytes Percent Auto 18.1 % (18.3-44.2); Mean Corpuscular Hemoglobin 32.9 pg (26-34); Mean Corpuscular Volume 96.7 fl (80-100); Mean Platelet Volume 10.2 fl (7.4-10.4); Monocytes Absolute Auto 0.7 K/mm3 (0.1-0.6); Monocytes Percent Auto 8.6 % (2.6-8.5); Neutrophils Percent Auto 69.8 % (45.5-73.1); Platelet Count Result 180 k/mm3 (150-375); Red Blood Count 4.56 M/mm3 (4.6-6.20); Red Cell Distribution Width 12.3 % (11.5-14.5); White Blood Count 8.6 K/mm3 (4.5-10.0)
--- NOTE | 2020-12-31 05:11 | ECG_ITS ---
Measurements Intervals [place] Rate: 66 P: 39 SD: 157 QRS: 41 QRSD: 90 T: -19 QT: 355 QTc: 373 Interpretive Statements SINUS RHYTHM NONSPECIFIC T-WAVE ABNORMALITY- INFERIOR LEADS BORDERLINE ECG Electronically Signed On 12-31-2020 15:49:04 CDT by Maurice Stone D.O.
[2020-12-31 05:37] LABS: Alanine Aminotransferase 56 U/L (4-50); Albumin Level 3.5 g/dL (3.5-5.1); Alkaline Phosphatase 64 U/L (38-126); Anion Gap 6 mmol/L (8-16); Aspartate Amino Transferase 75 U/L (17-59); Bilirubin,Total 0.5 mg/dL (0.2-1.3); Blood Urea Nitrogen 20 mg/dL (9-20); Calcium 8.6 mg/dL (8.4-10.2); Carbon Dioxide 26 mmol/L (22-30); Chloride 108 mmol/L (98-107); Estimated CRCL calculation 77 ml/min; Estimated Glomerular Filt Rate > 60; Glucose 95 mg/dL (65-110); Magnesium 1.9 mg/dL (1.6-2.3); Phosphorus 3.4 mg/dL (2.5-4.5); Potassium 4.2 mmol/L (3.4-5.0); Sodium 140 mmol/L (137-145)
--- NOTE | 2020-12-31 09:05 | PM.PNCARD ---
Progress Note: A&P Assessment and Plan (1) Vasovagal episode: Code(s): R55 - Syncope and collapse Status: Acute Assessment and Plan: Stable. Not on beta shane as he had episodes of transient bradycardia, one related to a blood draw but second one was unprovoked. (2) GERD (gastroesophageal reflux disease): Code(s): K21.9 - Gastro-esophageal reflux disease without esophagitis Status: Acute (3) Essential (primary) hypertension: Code(s): I10 - Essential (primary) hypertension Status: Acute Assessment and Plan: Stable. (4) Hyperlipidemia: Qualifiers: Hyperlipidemia type: unspecified Qualified Code(s): E78.5 - Hyperlipidemia, unspecified Code(s): E78.5 - Hyperlipidemia, unspecified Status: Acute Assessment and Plan: On Lovastatin. AST 75, ALT 56. Will monitor LFT as outpatient. (5) Occlusion of left internal carotid artery: Code(s): I65.22 - Occlusion and stenosis of left carotid artery Status: Acute (6) NSTEMI (non-ST elevated myocardial infarction): Code(s): I21.4 - Non-ST elevation (NSTEMI) myocardial infarction Status: Acute Assessment and Plan: Atypical symptoms for ACS, but results say otherwise with elevated troponin. Nuclear stress test shows inferior, inferolateral ischemia. EKG unremarkable. On aspirin, Brilinta, Atorvastatin, Metoprolol, Losartan. Discuss results of Left heart cath with patient and patient's which showed occluded distal RCA that was stented, and distal LAD 80% stenosis. Echo shows EF 60-65%, basal-mid posterior/basal inferior wall hypokinesis, mild AI/MR. May d/c home from cardiology standpoint and f/u with me in 1 week. Subjective Date/time seen: 12/31/20 09:05 Denies anymore throat pain that he presented with. No chest pain or sob. Right groin without pain or hematoma. Exam Const: General: cooperative, healthy appearing and comfortable Resp: Auscultation: clear to auscultation bilaterally, no crackles, no rales, no rhonchi and no wheezes Cardio: Jugular venous distension: no JVD Rate: regular rate Rhythm: regular rhythm Heart sounds: no murmurs Peripheral pulses: dorsalis pedis present GI: GI Palp: No abdominal tenderness and Yes Soft to palpation Neuro: General: oriented to person, oriented to place and oriented to time Extrem: Right lower extremity: no edema Left lower extremity: no edema Objective Data Vital Signs Vital Signs: Vital Signs - 24 hr 12/30/20 11:12 12/30/20 11:27 12/30/20 11:57 Temperature 98.9 F 99.0 F 99.0 F Pulse Rate 65 67 61 Pulse Rate [Bilateral Pedal (Dorsalis Pedis)] Respiratory Rate 21 H 21 H 14 Blood Pressure 133/69 133/69 138/63 Pulse Oximetry 99 96 98 12/30/20 12:00 12/30/20 12:57 12/30/20 13:15 Temperature 98.9 F Pulse Rate 63 67 66 Pulse Rate [Bilateral Pedal (Dorsalis Pedis)] Respiratory Rate 16 Blood Pressure 135/67 Pulse Oximetry 99 98 12/30/20 14:00 12/30/20 16:00 12/30/20 18:00 Temperature 99.0 F Pulse Rate 64 65 67 Pulse Rate [Bilateral Pedal (Dorsalis Pedis)] Respiratory Rate 22 H Blood Pressure 133/75 Pulse Oximetry 96 97 12/30/20 20:00 12/30/20 21:00 12/30/20 21:02 Temperature 98.6 F 98.6 F Pulse Rate 64 64 Pulse Rate [Bilateral Pedal (Dorsalis Pedis)] Respiratory Rate 18 Blood Pressure 123/75 Pulse Oximetry 97 97 12/30/20 21:32 12/30/20 22:00 12/31/20 00:00 Temperature 98.5 F Pulse Rate 66 63 Pulse Rate [Bilateral Pedal (Dorsalis Pedis)] 64 Respiratory Rate 18 18 Blood Pressure 131/110 H 117/65 Pulse Oximetry 96 96 12/31/20 01:33 12/31/20 03:52 12/31/20 04:00 Temperature 98.2 F 98.2 F Pulse Rate 62 77 64 Pulse Rate [Bilateral Pedal (Dorsalis Pedis)] Respiratory Rate 18 18 18 Blood Pressure 112/68 133/67 133/67 Pulse Oximetry 96 97 99 12/31/20 05:40 Temperature Pulse Rate 64 Pulse Rate [Bilateral Pedal (Dorsalis Pedis)] Resp
--- NOTE | 2020-12-31 09:21 | PM.PNCARD ---
Progress Note: A&P Assessment and Plan (1) NSTEMI (non-ST elevated myocardial infarction): Code(s): I21.4 - Non-ST elevation (NSTEMI) myocardial infarction Status: Acute Assessment and Plan: Patient admitted with NSTEMI, EKG continues to show no inferior Q-waves. Status post RCA stent yesterday for an occluded distal RCA with very mild LV dysfunction. Patient is doing well. Counseled pt re: his CAD, prognosis. Instructed patient on dual anti-platelet therapy, which must be continued without fail or risk stent thrombosis and ND. Counseled patient on activity, medications etc. Ambulate Probable discharge later today Follow-up with Dr. Stone for ongoing cardiac care. Subjective Date/time seen: 12/31/20 09:21 Interval history: INTERVENTIONAL CARDIOLOGY PROGRESS NOTE Date of service 12/31/2020: Follow-up for PCI of the right coronary artery done yesterday by Dr. Clarke. The distal RCA was occluded and received collaterals from the left and 80% distal Left anterior descending lesion. Dr. Clarke stented the right coronary artery with a 3 x 22 mm Orsiro drug-eluting stent and recommended medical therapy of the Left anterior descending lesion. He had posterior basal hypokinesis but EF of 65%. This morning the patient is feeling well but stiff from bedrest. No chest pain or shortness of breath, no leg pain. Review of Systems Constitutional: Constitutional: Reports body ache(s) (Backache, staph from bedrest) Eyes: Eyes: Reports no additional eye complaints ENT: Denies epistaxis Cardiovascular: Cardiovascular: Denies chest pain and Denies leg edema Respiratory: Respiratory: Denies dyspnea and Denies dyspnea on exertion Gastrointestinal: Gastrointestinal: Denies abdominal pain Musculoskeletal: Musculoskeletal: Reports back pain Integumentary/Breasts: Skin/Breast: Denies wounds Neurologic: Reports system reviewed and no additional complaints, except as documented Psychiatric: Psychiatric: Reports no additional psychiatric complaints Exam Narrative: Pleasant middle-age male in no distress Const: General: comfortable and no acute distress HENMT: Mouth: Yes moist mucous membranes Eyes: EOM: EOMs intact bilaterally Neck: Neck: supple Resp: Effort & Inspection: normal respiratory effort Auscultation: rales (Scattered rales in bases, suspect some dependent atelectasis) Cardio: Rate: regular rate Rhythm: regular rhythm Heart sounds: Murmur heart sound present (1-2/6 ZAIN apex) GI: GI Palp: Yes Soft to palpation and No Tenderness to palpation present (GI) Skin: General skin exam: normal color Other: Cath site without hematoma or swelling, no tenderness. Neuro: Cognition (Neuro): normal cognition Speech: normal speech Extrem: General: no edema and no pedal edema Other: Pedal pulses intact although diminished on the right Psych: Mental Status: mental status grossly normal Affect: normal affect Objective Data Vital Signs Vital Signs: Vital Signs - 24 hr 12/30/20 11:12 12/30/20 11:27 12/30/20 11:57 Temperature 98.9 F 99.0 F 99.0 F Pulse Rate 65 67 61 Pulse Rate [Bilateral Pedal (Dorsalis Pedis)] Respiratory Rate 21 H 21 H 14 Blood Pressure 133/69 133/69 138/63 Pulse Oximetry 99 96 98 12/30/20 12:00 12/30/20 12:57 12/30/20 13:15 Temperature 98.9 F Pulse Rate 63 67 66 Pulse Rate [Bilateral Pedal (Dorsalis Pedis)] Respiratory Rate 16 Blood Pressure 135/67 Pulse Oximetry 99 98 12/30/20 14:00 12/30/20 16:00 12/30/20 18:00 Temperature 99.0 F Pulse Rate 64 65 67 Pulse Rate [Bilateral Pedal (Dorsalis Pedis)] Respiratory Rate 22 H Blood Pressure 133/75 Pulse Oximetry 96 97 12/30/20 20:00 12/30/20 21:00 12/30/20 21:02 Temperature 98.6 F 98.6 F Pulse Rate 64 64 Pulse Rate [Bilateral Pedal (Dorsalis Pedis)] Respiratory Rate 18 Blood Pressure 123/75 Pulse Oximetry 97 97 12/30/20 21:32 12/30/20 22:00 12/31/20 00:00 Temperature
[2020-12-31] MEDS: TICAGRELOR 90 MG TABLET PO (09:47)
[2020-12-31] MEDS: PANTOPRAZOLE 40 MG TABLET PO (09:47)
[2020-12-31] MEDS: ASPIRIN 81 MG CHEWABLE TABLET PO (09:47)
[2020-12-31] MEDS: LOSARTAN POTASSIUM 100 MG TABLET PO (09:48)
[2020-12-31] MEDS: METOPROLOL SUCCINATE EXT REL 25 MG TABCR PO (09:48)
[2020-12-31] MEDS: ATORVASTATIN 40 MG TABLET 80 MG PO (09:48)
--- NOTE | 2020-12-31 11:51 | WPDINTPN ---
Progress Note: A&P Assessment and Plan (1) Chest pain: Code(s): R07.9 - Chest pain, unspecified Status: Acute Assessment and Plan: Chest pain with radiation to the jaw and throat likely related to ACS with positive Lexiscan and elevated troponins this morning -12/29/20: NM stress scan was positive Small area of severe ischemia involving mid to basal inferior wall of left ventricle. 2. Small area of severe mixed ischemia and infarct involving mid to basal inferolateral wall of left ventricle. 3. Normal left ventricular ejection fraction measuring >70% D/w with Dr Stone, updated with the above results, Will keep patient NPO for now, start heparin infusion and aspirin 12/30/2020: Status post cardiac catheterization, occluded RCA status post PTCA/PCI with MESSI x1 -continue aspirin, atorvastatin, losartan, metoprolol, Brilinta (2) Bradycardia: Code(s): R00.1 - Bradycardia, unspecified Status: Acute Assessment and Plan: Resolved Patient with episodes of bradycardia be related to vasovagal add or ischemic heart disease -will hold beta-shane for now due to bradycardic episodes (3) GERD (gastroesophageal reflux disease): Code(s): K21.9 - Gastro-esophageal reflux disease without esophagitis Status: Acute Assessment and Plan: Continue Protonix (4) Occlusion of left internal carotid artery: Code(s): I65.22 - Occlusion and stenosis of left carotid artery Status: Acute Assessment and Plan: 12/29/2020 Carotid Doppler study: Occluded left internal carotid artery, less than 50% stenosis in the right internal carotid artery -patient started on heparin infusion -once patient has his cardiac workup done before he can be worked up for his carotid occlusion on the left side. (5) Suspected 2019 novel coronavirus infection: Code(s): Z20.822 - Contact with and (suspected) exposure to COVID-19 Status: Acute Assessment and Plan: SARS-CoV-2 PCR Negative Additional Plan Discussed with patient updated with his condition and plan of care. Code status: Full code Critical care time spent: 31 minutes This dictation may have been done utilizing a voice recognition system. Attempts have been made to correct errors. However, there may be uncorrected grammatical, spelling, and recognition errors present. Due to a high probability of clinically significant, life threatening deterioration, the patient required my highest level of preparedness to intervene emergently and I personally spent this critical care time directly and personally managing the patient. This critical care time included obtaining a history; examining the patient; pulse oximetry; ordering and review of studies; arranging urgent treatment with development of a management plan; evaluation of patient's response to treatment; frequent reassessment; and discussions with other providers. It was exclusive of separately billable procedures and treating other patients and teaching time. Please see Assessment and Plan section and the rest of the note for further information on patient assessment and treatment Subjective Date/time seen: 12/31/20 11:51 Interval history: Reason for consult: Chest pain, bradycardia, left carotid artery occlusion, ACS 12/30/2020: Status post cardiac catheterization, distally occluded RCA status post PTCA/PCI with MESSI x1 12/31/2020: Patient seen and examined in the ICU, is awake, alert, oriented. States he feels better, hemodynamically stable, afebrile, urine output has been adequate. Patient denies any chest pain, shortness of breath abdominal pain, nausea, vomiting or diarrhea. Review of Systems Review of Systems: All systems reviewed & are unremarkable except as noted in HPI and below Exam Const: General: comfortable and no acute distress HENMT: Mouth: Yes moist mucous membranes Eyes: Sclera: sclerae normal Pupils: Equal, round and reactive pupils present Neck
--- NOTE | 2020-12-31 13:55 | PM.DS ---
DS: Admitting Diagnosis Discharge Date 12/31/2020 Admitting Diagnosis Chest pain NSTEMI GERD DS: Discharge Diagnosis Discharge Diagnosis (1) NSTEMI (non-ST elevated myocardial infarction): Code(s): I21.4 - Non-ST elevation (NSTEMI) myocardial infarction Status: Acute (2) Bradycardia: Code(s): R00.1 - Bradycardia, unspecified Status: Acute (3) Chest pain: Code(s): R07.9 - Chest pain, unspecified Status: Acute (4) Vasovagal episode: Code(s): R55 - Syncope and collapse Status: Acute (5) Ocular migraine: Code(s): G43.109 - Migraine with aura, not intractable, without status migrainosus Status: Acute (6) Essential (primary) hypertension: Code(s): I10 - Essential (primary) hypertension Status: Acute (7) Hyperlipidemia: Qualifiers: Hyperlipidemia type: unspecified Qualified Code(s): E78.5 - Hyperlipidemia, unspecified Code(s): E78.5 - Hyperlipidemia, unspecified Status: Acute (8) Asthma: Qualifiers: Asthma severity: mild Asthma persistence: intermittent Asthma complication type: uncomplicated Qualified Code(s): J45.20 - Mild intermittent asthma, uncomplicated Code(s): J45.909 - Unspecified asthma, uncomplicated Status: Acute (9) Renal calculus: Code(s): N20.0 - Calculus of kidney Status: Acute DS: Summary Hospital Course Reason for hospitalization: Chest pain Hospital Course: 55-year-old male with past medical history significant for hypertension, hyperlipidemia and GERD presented with chest pain. He was managed as a case NSTEMI given concerns with chest pain and rising troponin levels. He received Lexiscan stress test and echo during his stay which was concerning for ischemic symptoms. Cardiology was consulted and patient received a cardiac catheterization with the following findings: 1. 2 vessel coronary artery disease with 100% occlusion of the distal RCA with [id number] collateral filling this was most consistent with the acute coronary syndrome the patient presented with. This lesion was successfully treated with PCI using the Orsiro drug-eluting stent med described above with a very good anatomical angiographic result. 2. High-grade very distal stenosis of the LAD down near the apex of about 80%. 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 Time spent discussing smoking cessation with patient: 3 to 10 minutes Time Spent with Patient Time attestation: Total time spent providing and/or coordinating discharge services: Time spent: Greater than 30 minutes Exam Const: General: cooperative, healthy appearing and comfortable HENMT: Head: normal to inspection Ears: hearing grossly normal bilaterally Mouth: Yes Normal oral and palatal mucosa present Eyes: General: appearance normal, both eyes and all related structures Pupils: Equal, round and reactive pupils present EOM: EOMs intact bilaterally Neck: Neck: normal visual inspection, full ROM and no lymphadenopathy Chest: Chest palpation & inspection: normal inspection of the chest Resp: Effort & Inspection: normal respiratory effort Cardio: Jugular venous distension: no JVD Palpation: normal PMI Rate: regular rate Rhythm: regular rhythm Heart sounds: S1 normal heart sound present and S2 normal heart sound present GI: Inspection: normal to inspection Percussion: Yes normal to percussion Auscultation: normal bowel sounds : General: Yes bimanual renal exam normal bilaterally Back/Spine/Pelvis: Back: no CVA tendernes
--- NOTE | 2021-01-17 11:36 | P.CONGI_ITS ---
GI Consult Note Consult date/time: 01/17/21 11:36 HPI: I never saw the patient, consult was canceled. [facility] Past Medical History Medical History Asthma Chronic vertigo Enlarged prostate Essential (primary) hypertension Hyperlipidemia Nocturia Ocular migraine Renal agenesis Renal calculus Seasonal allergies TIA (transient ischemic attack) (~2012) Surgical History Surgical History History of colonoscopy with polypectomy (~05/02/17) Dr. Ledezma repeat in 5 years. History of ear surgery (~2010) semicircular canal surgery - left ear Family History Family History Father Diabetes mellitus Family history of Parkinson's disease Mother Cerebrovascular accident Social History Social History Smoking status: Never smoker Alcohol intake: current Drinks per week: 1 Substance use: never Spiritual care concerns: No Meds Home Medications and Allergies Home Medications Medication Instructions Recorded Confirmed Type multivitamin 1 tablet PO DAILY 07/26/20 01/06/21 History vitamin B complex 1 tablet PO DAILY 07/26/20 01/06/21 History aspirin [Children's Aspirin] 81 mg PO DAILY@0800 30 Days #30 12/31/20 01/06/21 Rx tablet atorvastatin 80 mg PO DAILY 30 Days #60 tablet 12/31/20 01/06/21 Rx losartan 100 mg PO DAILY 30 Days #30 tablet 12/31/20 01/06/21 Rx metoprolol succinate [Toprol XL] 25 mg PO QAM 30 Days #30 tablet 12/31/20 01/06/21 Rx pantoprazole 40 mg PO QAM 30 Days #30 tablet 12/31/20 01/06/21 Rx ticagrelor [Brilinta] 90 mg PO Q12HR 30 Days #60 tablet 12/31/20 01/06/21 Rx Allergies Allergy/AdvReac Type Severity Reaction Status Date / Time No Known Allergies Allergy Verified 01/06/21 09:42 Results Labs CBC & Chem 7: 12/31/20 04:24 12/31/20 04:24
== END 2020-12-31 14:30 | disposition home or self-care (01) | DRG 247 ==
LOC: ANHED 04:46 → ANHICU 04:49
PROVIDERS: Internal Medicine Cardiovascular Disease; Specialist; Admitting Provider Internal Medicine; Emergency Provider General Practice; PCP Nurse Practitioner Family; Visit Provider Internal Medicine
PROC: 4A023N7 Measurement of Cardiac Sampling and Pressure, Left Heart, Percutaneous Approach (ICD-10-PCS; CPT 93452; principal; 2020-12-30 10:00)
PROC: 027034Z Dilation of Coronary Artery, One Artery with Drug-eluting Intraluminal Device, Percutaneous Approach (ICD-10-PCS; 2020-12-30 10:00)
DX: I21.4 Non-ST elevation (NSTEMI) myocardial infarction (principal); I25.10 Atherosclerotic heart disease of native coronary artery without angina pectoris; Z20.822 Contact with and (suspected) exposure to COVID-19; R00.1 Bradycardia, unspecified; R55 Syncope and collapse; I10 Essential (primary) hypertension; E78.5 Hyperlipidemia, unspecified; J45.20 Mild intermittent asthma, uncomplicated; N20.0 Calculus of kidney; R94.39 Abnormal result of other cardiovascular function study; R77.8 Other specified abnormalities of plasma proteins; K21.9 Gastro-esophageal reflux disease without esophagitis; I44.1 Atrioventricular block, second degree; J02.9 Acute pharyngitis, unspecified; G43.B0 Ophthalmoplegic migraine, not intractable; G43.109 Migraine with aura, not intractable, without status migrainosus; R42 Dizziness and giddiness; I65.22 Occlusion and stenosis of left carotid artery; N40.1 Benign prostatic hyperplasia with lower urinary tract symptoms; R35.1 Nocturia; Z79.82 Long term (current) use of aspirin; Z79.899 Other long term (current) drug therapy; Z86.73 Personal history of transient ischemic attack (TIA), and cerebral infarction without residual deficits
CPT/HCPCS: 36415; 70490; 71046; 71275; 78452; 80048; 80053; 82948; 83735; 84100; 84484; 85025; 85610; 85730; 87081; 87880; 93005; 93017; 93306; 93458; 93880; 96374; 96375; 99285; A9270; A9502; C1725; C1769; C1874; C1887; C1894; C9113; C9600; C9803; J0131; J0583; J1644; J2250; J2270; J2405; J2785; J3010; J7030; J7120; Q9957; Q9967; U0003; U0005

== ENCOUNTER 2021-04-24 07:15 | Outpatient (RCR) | payer OTHER, SELFPAY ==
[2021-01-27 09:10] VITALS: PULSE 69
== END 2021-04-24 13:50 | disposition home or self-care (01) ==
LOC: ANHCPREHAB 07:15
PROVIDERS: PCP Nurse Practitioner Family; Visit Provider Internal Medicine Cardiovascular Disease
DX: Z95.5 Presence of coronary angioplasty implant and graft (principal)
CPT/HCPCS: 93798

== ENCOUNTER 2021-11-24 09:02 | Outpatient (CLI) | payer OTHER, SELFPAY ==
--- NOTE | ~2021-11-24 | US_ITS ---
EXAMINATION: US carotid duplex BI DATE: 11/24/2021 10:04 INDICATION: Occlusion of the left carotid artery. TECHNIQUE: Grayscale, color Doppler, and pulsed Doppler images of the cervical carotid arteries were obtained. The degree of vessel stenosis is placed in one of the following categories: normal, <50%, 5 0-69%, >=70% but less than near-occlusion, near-occlusion, or total occlusion. Note that percent sten osis relative to normal distal artery lumen diameter is indirectly measured from velocity measurement s as described by Alex, et al. Radiology 2003; [id number]. Notes: Normal: Peak systolic velocity <125 centimeters/sec and no plaque <50%. Peak systolic velocity <125 ( EDV <40; ICA/CCA PSV ratio <2.0; used these factors only a tandem lesions or low cardiac output or co ntralateral disease) 50-69 %: PSV 125-230 (EDV 40-100; ratio 2-4) >= 70% but less than near occlusion: PSV greater than 230 (EDV > 100; ratio> 4.0) Near Occlusion: PSV that is variable; markedly narrowed lumen Occlusion: Absent flow on color/spectral Doppler and no lumen on matt scale. COMPARISON: None. FINDINGS: RIGHT: The right common carotid artery (CCA) peak systolic velocity (PSV) is 129 cm/s. The right internal ca rotid artery (ICA) PSV is 131 cm/s. The right ICA end-diastolic velocity (EDV) is 40 cm/s. The right ICA/CCA PSV ratio is 1.0. The external carotid artery (ECA) PSV is 212 cm/s. There is antegrade flow in the right vertebral artery. LEFT: The left CCA PSV is 21 cm/s. The left carotid artery is occluded. The ECA PSV is 52 cm/s. There is an tegrade flow in the left vertebral artery. IMPRESSION: 1. 50-69% stenosis in the right internal carotid artery by sonographic criteria. 2. Occlusion of the left internal carotid artery. Reviewed, dictated and finalized at location A. IMPRESSION: 1. 50-69% stenosis in the right internal carotid artery by sonographic criteria . 2. Occlusion of the left internal carotid artery.
== END 2021-11-24 09:03 | disposition home or self-care (01) ==
PROVIDERS: PCP Nurse Practitioner Family; Visit Provider Internal Medicine Cardiovascular Disease
DX: I65.23 Occlusion and stenosis of bilateral carotid arteries (principal)
CPT/HCPCS: 93880

== ENCOUNTER 2022-06-04 17:33 | Outpatient (CLI) | payer OTHER, SELFPAY ==
[2022-06-04 18:44] LABS: Troponin I < 0.012 ng/mL (0.000-0.034)
== END 2022-06-04 17:34 | disposition home or self-care (01) ==
LOC: ANHLAB 17:35
PROVIDERS: PCP Family Medicine; Visit Provider Internal Medicine Cardiovascular Disease
DX: R07.9 Chest pain, unspecified (principal)
CPT/HCPCS: 36415; 84484

== ENCOUNTER 2022-06-28 16:27 | Outpatient (CLI) | payer OTHER, SELFPAY ==
--- NOTE | ~2022-06-28 | XR_ITS ---
EXAMINATION: [id number] DATE: 06/28/2022 16:49 INDICATION: Left rib pain. Fall. TECHNIQUE: A frontal view of the chest and 2 views on 4 radiographs of the left ribs were obtained. COMPARISON: Chest 2 views 12/29/2020, chest CT 12/29/2020 FINDINGS: The chest demonstrates clear lungs without pneumonia, pleural effusion, or pneumothorax. Th e heart size is normal. There are fractures of left ninth and 10th ribs. IMPRESSION: 1. Fractures of left ninth and 10th ribs. Reviewed, dictated and finalized at location E.
== END 2022-06-28 16:28 | disposition home or self-care (01) ==
LOC: ANHIMG 16:29
PROVIDERS: PCP Family Medicine; Visit Provider Nurse Practitioner Family
DX: S22.42XA Multiple fractures of ribs, left side, initial encounter for closed fracture (principal); W19.XXXA Unspecified fall, initial encounter
CPT/HCPCS: 71101

== ENCOUNTER 2023-01-01 07:00 | Outpatient (CLI) | payer OTHER, SELFPAY ==
[2023-01-01 07:34] LABS: Alanine Aminotransferase 39 U/L (6-50); Albumin Level 4.5 g/dL (3.5-5.1); Alkaline Phosphatase 72 U/L (38-126); Anion Gap 6 mmol/L (8-16); Aspartate Amino Transferase 38 U/L (17-59); Blood Urea Nitrogen 23 mg/dL (9-20); Calcium 9.2 mg/dL (8.4-10.2); Carbon Dioxide 29 mmol/L (22-30); Chloride 105 mmol/L (98-107); Cholesterol 155 mg/dL (0-200); Estimated Glomerular Filt Rate > 60; Glucose 108 mg/dL (65-110); HDL Direct 32 mg/dL; Potassium 4.3 mmol/L (3.4-5.0); Sodium 140 mmol/L (137-145); Triglycerides 136 mg/dL (<150)
[2023-01-01 07:45] LABS: LDL Cholesterol Direct 91 mg/dL
== END 2023-01-01 07:01 | disposition home or self-care (01) ==
PROVIDERS: PCP Family Medicine; Visit Provider Internal Medicine Cardiovascular Disease
DX: E78.5 Hyperlipidemia, unspecified (principal)
CPT/HCPCS: 36415; 80053; 80061

== ENCOUNTER 2023-01-18 10:43 | Outpatient (CLI) | payer OTHER, SELFPAY ==
--- NOTE | ~2023-01-18 | US_ITS ---
EXAMINATION: US carotid duplex BI DATE: 01/18/2023 11:57 INDICATION: Occlusion and stenosis of left carotid artery. TECHNIQUE: Grayscale, color Doppler, and pulsed Doppler images of the cervical carotid arteries were obtained. The degree of vessel stenosis is placed in one of the following categories: normal, <50%, 5 0-69%, >=70% but less than near-occlusion, near-occlusion, or total occlusion. Note that percent sten osis relative to normal distal artery lumen diameter is indirectly measured from velocity measurement s as described by Alex, et al. Radiology 2003; [id number]. COMPARISON: Ultrasound 11/24/2021 FINDINGS: RIGHT: The right common carotid artery (CCA) peak systolic velocity (PSV) is 136 cm/s. The right internal ca rotid artery (ICA) PSV is 115 cm/s. The right ICA end-diastolic velocity (EDV) is 40 cm/s. The right ICA/CCA PSV ratio is 0.8. Grayscale and color Doppler images yield an estimate of <50% diameter reduc tion from plaque in the ICA. There is antegrade flow in the right vertebral artery. LEFT: The left CCA PSV is 37 cm/s. Grayscale and color Doppler images demonstrate total occlusion of the IC A. There is antegrade flow in the left vertebral artery. IMPRESSION: 1. <50% stenosis in the right internal carotid artery. 2. Total occlusion of left internal carotid artery. Reviewed, dictated and finalized at location A. ER HAND
== END 2023-01-18 10:44 | disposition home or self-care (01) ==
PROVIDERS: PCP Family Medicine; Visit Provider Internal Medicine Cardiovascular Disease
DX: I65.23 Occlusion and stenosis of bilateral carotid arteries (principal)
CPT/HCPCS: 93880

== ENCOUNTER 2023-06-26 06:36 | Outpatient (CLI) | payer OTHER, SELFPAY ==
[2023-06-26 07:16] LABS: Basophils Absolute Auto 0.1 K/mm3 (0.0-0.1); Basophils Percent Auto 0.9 % (0.2-1.2); Eosinophils Absolute Auto 0.5 K/mm3 (0-0.3); Eosinophils Percent Auto 7.8 % (0-4.4); Hematocrit 48.2 % (42.0-52.0); Hemoglobin 16.6 g/dL (14.0-18.0); Immature Granulocyte Absolute 0.02 K/mm3 (0.00-0.031); Immature Granulocyte Percent A 0.3 % (0-0.5); Lymphocytes Absolute Auto 1.69 K/mm3 (0.9-3.2); Lymphocytes Percent Auto 26.4 % (18.3-44.2); Mean Corpuscular HGB Conc 34.4 g/dl (32-36); Mean Corpuscular Hemoglobin 32.4 pg (26-34); Mean Corpuscular Volume 94.1 fl (80-100); Monocytes Absolute Auto 0.4 K/mm3 (0.1-0.6); Monocytes Percent Auto 6.7 % (2.6-8.5); Neutrophils Absolute Auto 3.7 K/mm3 (1.3-6.7); Neutrophils Percent Auto 57.9 % (45.5-73.1); Platelet Count Result 195 k/mm3 (150-375); Red Blood Count 5.12 M/mm3 (4.6-6.20); Red Cell Distribution Width 12.4 % (11.5-14.5); White Blood Count 6.4 K/mm3 (4.5-10.0)
[2023-06-26 07:36] LABS: Alanine Aminotransferase 34 U/L (6-50); Albumin Level 4.4 g/dL (3.5-5.1); Alkaline Phosphatase 67 U/L (38-126); Anion Gap 6 mmol/L (4-12); Aspartate Amino Transferase 35 U/L (17-59); Bilirubin,Total 0.8 mg/dL (0.2-1.3); Blood Urea Nitrogen 22 mg/dL (9-20); Calcium 9.2 mg/dL (8.4-10.2); Carbon Dioxide 26 mmol/L (22-30); Chloride 109 mmol/L (98-107); Cholesterol 153 mg/dL (0-200); Estimated Glomerular Filt Rate > 60; Glucose 112 mg/dL (65-110); HDL Direct 35 mg/dL; Sodium 141 mmol/L (137-145); Triglycerides 112 mg/dL (<150)
[2023-06-26 07:47] LABS: LDL Cholesterol Direct 101 mg/dL
[2023-06-26 08:13] LABS: Hemoglobin A1C 5.4 % (<5.7)
[2023-06-26 09:23] LABS: Vitamin D 25 Hydroxy 48.7 ng/mL
== END 2023-06-26 06:37 | disposition home or self-care (01) ==
LOC: ANHLAB 06:38
PROVIDERS: PCP Family Medicine; Visit Provider Nurse Practitioner Family
DX: Z00.00 Encounter for general adult medical examination without abnormal findings (principal); E55.9 Vitamin D deficiency, unspecified; R73.03 Prediabetes; E53.8 Deficiency of other specified B group vitamins; Z13.29 Encounter for screening for other suspected endocrine disorder; E78.5 Hyperlipidemia, unspecified
CPT/HCPCS: 36415; 80053; 80061; 82306; 82607; 83036; 84443; 85025

== ENCOUNTER 2023-08-16 01:02 | Day surgery (SDC) | payer OTHER, SELFPAY ==
[2023-08-02 11:03] VITALS: BMI 24.8
[2023-08-16 06:18] VITALS: BP 141/86; PULSE 75; RESP 20; TEMP 36.3; O2SAT 99
[2023-08-16] MEDS: LACTATED RINGERS 1,000 ML 150 ML IV CONT (06:27)
--- NOTE | 2023-08-16 07:29 | WPDANESEPPF ---
Anes - Initial Pre Proc Eval Procedure: Operation Date: 08/16/23 07:30 Proposed Procedures p Colonoscopy - Cholo Wilkinson MD Date/Time: 08/16/23 07:29 Surgeon: Cholo Wilkinson MD Pre Op Diagnosis: personal hx. colono polyp Patient Data Age: 57 Gender: M Height: 1.85 m Weight: 86.4 kg Last Vital Signs Temp 97.3 F L 08/16/23 06:18 Pulse 75 08/16/23 06:18 Resp 20 08/16/23 06:18 BP 141/86 H 08/16/23 06:18 Pulse Ox 99 08/16/23 06:18 O2 Del Method Room Air 08/16/23 06:18 Allergies Allergy/AdvReac Type Severity Reaction Status Date / Time No Known Allergies Allergy Verified 08/16/23 06:17 Home Medications Medication Instructions Recorded Confirmed Type multivitamin (Daily Multi-Vitamin 1 tablet PO DAILY 07/26/20 08/02/23 History tablet) aspirin 81 mg chewable tablet 81 mg PO DAILY@0800 30 days #30 12/31/20 08/02/23 Rx (Children's Aspirin) tabs pantoprazole 40 mg tablet,delayed 40 mg PO QAM #90 tabs 12/27/22 08/02/23 Rx release losartan 50 mg tablet 75 mg PO DAILY #90 tabs 01/09/23 08/02/23 Rx clotrimazole 1 % topical cream 1 applic topical Q8H #30 grams 05/03/23 08/02/23 Rx atorvastatin 20 mg tablet 40 mg PO DAILY 07/08/23 08/02/23 History metoprolol succinate 25 mg 25 mg PO QAM 07/08/23 08/02/23 History tablet,extended release 24 hr (Toprol XL) clonazepam 0.5 mg tablet 0.5 mg PO DAILY PRN anxiety #30 07/26/23 08/02/23 Rx tabs triamcinolone acetonide 0.1 % 1 applic topical BID PRN Rash 08/02/23 08/02/23 History topical ointment Patient hx anesthesia problems: none Family hx anesthesia problems: none Results Review: All pre-operative results and documents have been reviewed as part of the pre-operative evaluation. [facility] Past Medical History Medical History (Updated 05/03/23 @ 08:59 by Nina Merlos APRN) Asthma Chronic vertigo Enlarged prostate Essential (primary) hypertension History of colon polyps Hyperlipidemia Jock itch Left rib fracture (~06/2022) 9th and 10th ribs Myocardial infarction Nocturia Ocular migraine Psoriasis Renal agenesis Renal calculus Right facial numbness Seasonal allergies TIA (transient ischemic attack) (~2012) Surgical History Surgical History History of colonoscopy with polypectomy (~05/02/17) Dr. Ledezma repeat in 5 years. History of ear surgery (~2010) semicircular canal surgery - left ear Family History Family History Father Diabetes mellitus Family history of Parkinson's disease Hypertension Cerebrovascular accident Pulmonary edema Mother No problems noted. Father Diabetes mellitus Social History Social History (Updated 05/03/23 @ 07:44 by Annette Barr MA) Smoking status: Never smoker Alcohol intake: current Drinks per week: 1 Substance use: never Substance use type: does not use Living arrangements: with family Spiritual care concerns: No Agree to blood products: Yes Anes - Eval Final PreProcedure Day of Procedure 08/16/23 07:29 Patient weight: normal Heart: regular rate and rhythm Lungs: clear to auscultation Airway: Mallampati scale class II Neurological: alert and oriented Last oral intake: >/= 8 hours ASA classification: III Emergent: no Anesthetic plan: proceed Anesthesia type and monitoring: general GIVS and standard monitoring Results Review: All pre-operative results and documents have been reviewed as part of the pre-operative evaluation. Informed Consent: The patient's anesthetic plan and its attendant risks and benefits were discussed with the patient/family/POA. Questions were solicited and answers provided to the satisfaction of the patient/family/POA.
--- NOTE | 2023-08-16 07:30 | PM.HPGS ---
History of Present Illness History of Present Illness Consent: Risks, benefits, and alternatives have been discussed and questions answered. Patient agrees to proceed with procedure. Chief complaint: personal hx. colon polyp Narrative: Jairo Junior is a 57 year old male with colon polyp 6 years ago Review of Systems Review of Systems: All systems reviewed & are unremarkable except as noted in HPI and below PMFSH Past Medical History Medical History (Updated 05/03/23 @ 08:59 by Nina Merlos, FURNITURE DUSTER) Asthma Chronic vertigo Enlarged prostate Essential (primary) hypertension History of colon polyps Hyperlipidemia Jock itch Left rib fracture (~06/2022) 9th and 10th ribs Myocardial infarction Nocturia Ocular migraine Psoriasis Renal agenesis Renal calculus Right facial numbness Seasonal allergies TIA (transient ischemic attack) (~2012) Surgical History Surgical History History of colonoscopy with polypectomy (~05/02/17) Dr. Ledezma repeat in 5 years. History of ear surgery (~2010) semicircular canal surgery - left ear Family History Family History Father Diabetes mellitus Family history of Parkinson's disease Hypertension Cerebrovascular accident Pulmonary edema Mother No problems noted. Father Diabetes mellitus Social History Social History (Updated 05/03/23 @ 07:44 by Annette Barr MA) Smoking status: Never smoker Alcohol intake: current Drinks per week: 1 Substance use: never Substance use type: does not use Living arrangements: with family Spiritual care concerns: No Agree to blood products: Yes Meds Home Medications and Allergies Home Medications Medication Instructions Recorded Confirmed Type multivitamin (Daily Multi-Vitamin 1 tablet PO DAILY 07/26/20 08/02/23 History tablet) aspirin 81 mg chewable tablet 81 mg PO DAILY@0800 30 days #30 12/31/20 08/02/23 Rx (Children's Aspirin) tabs pantoprazole 40 mg tablet,delayed 40 mg PO QAM #90 tabs 12/27/22 08/02/23 Rx release losartan 50 mg tablet 75 mg PO DAILY #90 tabs 01/09/23 08/02/23 Rx clotrimazole 1 % topical cream 1 applic topical Q8H #30 grams 05/03/23 08/02/23 Rx atorvastatin 20 mg tablet 40 mg PO DAILY 07/08/23 08/02/23 History metoprolol succinate 25 mg 25 mg PO QAM 07/08/23 08/02/23 History tablet,extended release 24 hr (Toprol XL) clonazepam 0.5 mg tablet 0.5 mg PO DAILY PRN anxiety #30 07/26/23 08/02/23 Rx tabs triamcinolone acetonide 0.1 % 1 applic topical BID PRN Rash 08/02/23 08/02/23 History topical ointment Allergies Allergy/AdvReac Type Severity Reaction Status Date / Time No Known Allergies Allergy Verified 08/16/23 06:17 Vital Signs Vital Signs - 24 hr 08/16/23 06:18 Temperature 97.3 F L Pulse Rate 75 Respiratory Rate 20 Blood Pressure 141/86 H Pulse Oximetry 99 Oxygen Delivery Room Air Exam Const: General: comfortable and no acute distress HENMT: Face/Nose/Sinus: Normal nares present Eyes: General: appearance normal, both eyes and all related structures Neck: Neck: no JVD Resp: Auscultation: clear to auscultation bilaterally Cardio: Rate: regular rate Rhythm: regular rhythm GI: Inspection: non-distended GI Palp: Yes Soft to palpation Skin: General skin exam: normal color Neuro: General: gait normal Speech: normal speech Extrem: General: normal to inspection Psych: Mental Status: mental status grossly normal Assessment and Plan Assessment and plan (1) History of colon polyps: Code(s): Z86.010 - Personal history of colonic polyps Status: Acute Assessment and Plan: colonoscopy
[2023-08-16 07:45] VITALS: BP 139/85; PULSE 73; RESP 27; O2SAT 96
[2023-08-16 07:55] VITALS: BP 135/85; PULSE 60; RESP 25; O2SAT 97
[2023-08-16 08:05] VITALS: BP 139/90; PULSE 60; RESP 22; O2SAT 99
== END 2023-08-16 08:13 | disposition home or self-care (01) ==
PROVIDERS: PCP Family Medicine; Referring Provider Nurse Practitioner Family; Visit Provider Internal Medicine Gastroenterology
PROC: 0DJD8ZZ Inspection of Lower Intestinal Tract, Via Natural or Artificial Opening Endoscopic (ICD-10-PCS; CPT 45378; principal; 2023-08-16 07:30)
DX: Z12.11 Encounter for screening for malignant neoplasm of colon (principal); D12.3 Benign neoplasm of transverse colon; K64.8 Other hemorrhoids; J45.909 Unspecified asthma, uncomplicated; I10 Essential (primary) hypertension; E78.5 Hyperlipidemia, unspecified; Z86.73 Personal history of transient ischemic attack (TIA), and cerebral infarction without residual deficits
CPT/HCPCS: 45385; 88305; J2704; J7120

== ENCOUNTER 2024-01-31 10:45 | Outpatient (CLI) | payer OTHER, SELFPAY ==
--- NOTE | ~2024-01-31 | US_ITS ---
EXAMINATION: US carotid duplex BI DATE: 01/31/2024 13:15 INDICATION: Left carotid artery occlusion TECHNIQUE: Grayscale, color Doppler, and pulsed Doppler images of the cervical carotid arteries were obtained. The degree of vessel stenosis is placed in one of the following categories: normal, <50%, 5 0-69%, >=70% but less than near-occlusion, near-occlusion, or total occlusion. Note that percent sten osis relative to normal distal artery lumen diameter is indirectly measured from velocity measurement s as described by Alex, et al. Radiology 2003; 229:340-346. COMPARISON: 01/18/2023 FINDINGS: RIGHT: The right common carotid artery (CCA) peak systolic velocity (PSV) is 111 cm/s. The right internal ca rotid artery (ICA) PSV is 133 cm/s. The right ICA end-diastolic velocity (EDV) is 29 cm/s. The right ICA/CCA PSV ratio is 1.2. Grayscale and color Doppler images including secondary Doppler criteria yie ld an estimate of <50% diameter reduction from plaque in the ICA. The external carotid artery (ECA) P SV is 184 cm/s. There is antegrade flow in the right vertebral artery. LEFT: The left CCA PSV is 34 cm/s. Complete occlusion of the left internal carotid artery. The ECA PSV is 5 1 cm/s. There is antegrade flow in the left vertebral artery. IMPRESSION: 1. <50% stenosis in the right internal carotid artery. 2. Complete occlusion of the left internal carotid artery. Reviewed, dictated and finalized at location A. [facility]
== END 2024-01-31 10:46 | disposition home or self-care (01) ==
PROVIDERS: PCP Family Medicine; Visit Provider Internal Medicine Cardiovascular Disease
DX: I65.21 Occlusion and stenosis of right carotid artery (principal); I65.22 Occlusion and stenosis of left carotid artery
CPT/HCPCS: 93880

== ENCOUNTER 2024-05-27 07:28 | Outpatient (CLI) | payer OTHER, SELFPAY ==
--- OUTSIDE RECORDS SUMMARY | 2024-05-27 07:33 | XMS_ITS | Clinical Summary ---
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 Gender Identity Not on file Sexual Orientation Not on file Plan of Treatment Health Maintenance Due Date Last Done Comments Hepatitis C Virus (HCV) Screening 1966 TdaP Immunization 1966 Hepatitis B Immunization (1 of 3 - 19+ 3-dose series) 1985 Colonoscopy 09/26/2011 Colorectal Cancer Screening 09/26/2011 Cologuard 2016 Immunochemical Fecal Occult Blood 2016 Pneumococcal Immunization (5 0+ years) (1 of 1 - PCV) 2016 Zoster Immunization (1 of 2) 2016 PSA Discussion 2021 Influenza Immunization (#1) 2023 SARS-COV-2 Immunization ( - season) 2023 Respiratory Syncytial Virus (RSV) Immunization (Adult) (1 - 1-dose 75+ series) 2041 Meningococcal Immunization (ACWY) Aged Out No longer eligible based on patient's age to complete this topic Pneumococcal Immunization Combined Aged Out No longer eligible based on patient's age to complete this topic Rotavirus Immunization Aged Out No lo nger eligible based on patient's age to complete this topic
--- OUTSIDE RECORDS SUMMARY | 2024-05-27 07:33 | XMS_ITS | Clinical Summary ---
[facility] Organization [facility] Address [address] [place]: Epic Prelude ADT FACUNDO KNIGHT [address] Care Team Providers Care Motor Boss Name Role Phone Unavailable Primary Care Provider Unavailabl e Medications clotrimazole (LOTRIMIN) 1 % Cream Apply topically once every 12 hours for 2 weeks as directed 45 Gram 02/09/2022 5:04 PM PILOT PLANT OPERATOR 2 Active fluconazole (DIFLUCAN) 150 mg tablet Take 1 tablet (150 mg) by mouth today, then take 1 tablet (150 mg) by mouth in 72 hours 2 Tablet 01/29/2022 5:32 PM PILOT PLANT OPERATOR 2 Active pantoprazole (PROTONIX) 40 mg Tablet, Delayed Release (E.C.) Take 1 Tablet (40 mg) by mouth daily in the morning. 30 Tablet 5 3 Active nirmatrelvir-ri tonavir (Paxlovid, EUA,) 300(150mg x 2)-100 mg oral pack take TWO 150 mg tablets of nirmatrelvir with ONE 100 mg tablet of ritonavir twice daily for 5 days PO HOLD YOUR STATIN WHILE TAKING PAXLOVID 30 Each 3 Active pantoprazole (PROTONIX) 40 mg Tablet, Delayed Release (E.C.) Take one tablet by mouth every morning 90 Tablet 2 3 Active metoprolol succinate (TOPROL XL) 25 mg Extended Release 24 hour tablet Take 1 Tablet (25 mg) by mouth daily in the morning. 90 Tablet 2 08/26/2022 12:57 PM CDT 3 Active metoprolol succinate (TOPROL XL) 25 mg Extended Release 24 hour tablet Take 1 Tablet (25 mg) by mouth daily in the morning. 90 Tablet 2 3 Active pantoprazole (PROTONIX) 40 mg Tablet, Delayed Release (E.C.) Take 1 Tablet (40 mg) by mouth daily in the morning. 90 Tablet 2 3 Active fluconazole (DIFLUCAN) 150 mg tablet TAKE 1 TABLET BY MOUTH TODAY, THEN TAKE 1 TABLET BY MOUTH IN 72 HOURS 2 Tablet 05/03/2023 6:33 PM PILOT PLANT OPERATOR 4 Active clotrimazole (LOTRIMIN) 1 % Cream Apply to affected area(s) topically every 8 hours. 30 Gram 1 05/07/2023 4:55 PM PILOT PLANT OPERATOR 4 Active clonazePAM (KlonoPIN) 0.5 mg Tablet Take 1 Tablet (0.5 mg) by mouth 1 time daily as needed for anxiety. 30 Tablet 07/26/2023 4:00 PM CDT 4 Active atorvastatin (LIPITOR) 40 mg tablet Take 1 Tablet (40 mg) by mouth daily. 30 Tablet 10/11/2023 6:49 PM CDT 4 Active clonazePAM (KlonoPIN) 0.5 mg Tablet Take 1 Tablet (0.5 mg) by mouth 1 time daily as needed FOR ANXIETY. 30 Tablet 04/14/2024 4:57 PM PILOT PLANT OPERATOR 5 Active citalopram (CeleXA) 10 mg tablet Take 1 Tablet (10 mg) by mouth daily. 90 Tablet 05/09/2024 11:03 AM PILOT PLANT OPERATOR 5 Active Encounters Date Type Department Care Team Description 05/12/2024 External Device Data [facility]STRACTION Provider, Abstract 05/12/2024 External Device Data [facility]STRACTION Provider, Abstract 04/14/2024 External Device Data [facility] Provider, Abstract 03/10/2024 External Device Data [facility] Provider, Abstract from Last 3 Months Immunizations Immunization Administration Dates Next Due INFLUENZA VACCINE QUADRIVALENT 6 MOS UP PF IM Social History Tobacco Use Types Packs/Day Years Used Date Smoking Tobacco: Never Assessed Sex and Gender Information Value Date Recorded Sex Assigned at Not on file Legal Sex Male 3:27 PM CDT Gender Identity Not on file Sexual Orientation Not on file Plan of Treatment Health Maintenance Due Date Last Done Comments DTAP/TDAP/TD VACCINES (1 - Tdap) 1985 HEPATITIS B VACCINES (1 of 3 - 19+ 3-dose series) 1985 COLORECTAL SCREENING 09/26/2011 Colorectal Cancer Screening 09/26/2011 FIT-DNA Q 3 years 09/26/2011 FIT/FOBT Q 1 year 09/26/2011 Flex Sig/CT Colonography Q 5 years 09/26/2011 ZOSTER VACCINE (1 of 2) 2016 INFLUENZA VACCINE (#1) 2023 02/15/2022 PNEUMOCOCCAL VACCINE 0-49 YEARS Aged Out No longer eligible based on patient's age to complete this topic Insurance RX [employer] (INTERNAL) [facility] RX [employer] RX [employer] (INTERNAL) [employer] RX [employer] DATA Medicare Part B
--- OUTSIDE RECORDS SUMMARY | 2024-05-27 07:33 | XMS_ITS | Clinical Summary ---
Author Organization [facility] Address [address] [place] [address] Care Team Providers Care Chef Broiler Or Fry Name Role Phone Unavailable Primary Care Provider Unavailabl e Source Comments [facility],non-owned Affiliates and Associated Physician Practices is amultiple site organization consisting of ambulatory clinics and hospital sitesin [place], [place], [place] and [place]. This disclosure is being madepursuant to the Care Everywhere program and may not contain all information available regarding this patient. Last updated 17.[facility] Allergies No known active allergies Medications * Be aware that medications may not be up to date on this document. Alwaysverify current medications with the patient. Medication Sig Dispensed Refills Start Date End Date Status simvastatin (ZOCOR) 10 MG tablet Take 10 mg by mouth at bedtime Active predniSONE (DELTASONE) 10 MG tabletIndications:was p sting Take by mouth with food: 60mg on day 1, 50mg day 2, 40mg day 3, 30mg day 4, 20mg day 5, 10mg day 6 Reasons: wasp sting 21 tablet 08/11/2019 Active Social History Tobacco Use Types Packs/Day Years Used Date Smoking Tobacco: Never Smokeless Tobacco: Never Sex and Gender Information Value Date Recorded Sex Assigned at Not on file Gender Identity Not on file Sexual Orientation Not on file Last Filed Vital Signs Vital Sign Reading Time Taken Comments Blood Pressure 124/82 08/11/2019 6:55 PM CDT Pulse 98 08/11/2019 6:55 PM CDT Temperature 36.9 C (98.4 F) 08/11/2019 6:55 PM CDT Respiratory Rate 16 08/11/2019 6:55 PM CDT Oxygen Saturation 98% 08/11/2019 6:55 PM CDT Inhaled Oxygen Concentration - - Weight 90.7 kg (200 lb) 08/11/2019 6:55 PM CDT Height 185.4 cm (6' 1 ) 08/11/2019 6:55 PM CDT Body Mass Index 26.39 08/11/2019 6:55 PM CDT Plan of Treatment Health Maintenance Due Date Last Done Comments COLOGUARD (AGES 45-75) - COL ON CA SCREENING 1966 COLON MONITORING 1966 COLONOSCOPY - COLON CA SCREENING 1966 CT COLONOGRAPHY - COLON CA SCREENING 1966 Colorectal Cancer Screening 1966 FIT - COLON CA SCREENING 1966 FLEX SIG - COLON CA SCREENING 1966 HIV SCREENING 1981 HEPATITIS C SCREENING 09/20/1984 DTAP/TDAP/TD VACCINES (1 - Tdap) 1985 HEPATITIS B VACCINE (1 of 3 - 19+ 3-dose series) 1985 PNEUMOCOCCAL VACCINE 50+ (1 of 1 - PCV) 2016 ZOSTER VACCINE (1 of 2) 2016 SCREENING FOR DIABETES 08/11/2019 COVID-19 VACCINE ( - 2023-2 5 season) 2023 INFLUENZA VACCINE (#1) 2023 DEPRESSION SCREENING 03/04/2024 HIB VACCINE Aged Out No longer eligi ble based on patient's age to complete this topic HPV VACCINE Aged Out No longer eligi ble based on patient's age to complete this topic MENINGOCOCCAL (Group B) VACC INE SHARED DECISION-MAKING Aged Out No longer eligibl e based on patient's age to complete this topic MENINGOCOCCAL GROUPS A/C/Y/W VACCINE Aged Out No longer eligible b ased on patient's age to complete this topic PNEUMOCOCCAL VACCINE Aged Out No long er eligible based on patient's age to complete this topic KLEVER JUNIOR Personal/Famil y [address] [place] [address] KLEVER JUNIOR Personal/Famil y [address] [place] [address] KLEVER JUNIOR Personal/Famil y [address] [place] [address]
[2024-05-27 08:04] LABS: Basophils Absolute Auto 0.1 K/mm3 (0.0-0.1); Basophils Percent Auto 0.9 % (0.2-1.2); Eosinophils Absolute Auto 0.5 K/mm3 (0-0.3); Eosinophils Percent Auto 6.5 % (0-4.4); Hematocrit 48.4 % (42.0-52.0); Hemoglobin 16.6 g/dL (14.0-18.0); Immature Granulocyte Absolute 0.02 K/mm3 (0.00-0.031); Immature Granulocyte Percent A 0.3 % (0-0.5); Lymphocytes Absolute Auto 1.63 K/mm3 (0.9-3.2); Lymphocytes Percent Auto 23.5 % (18.3-44.2); Mean Corpuscular HGB Conc 34.3 g/dl (32-36); Mean Corpuscular Hemoglobin 32.3 pg (26-34); Mean Corpuscular Volume 94.2 fl (80-100); Mean Platelet Volume 10.8 fl (7.4-10.4); Monocytes Absolute Auto 0.5 K/mm3 (0.1-0.6); Monocytes Percent Auto 6.5 % (2.6-8.5); Neutrophils Absolute Auto 4.3 K/mm3 (1.3-6.7); Neutrophils Percent Auto 62.3 % (45.5-73.1); Platelet Count Result 200 k/mm3 (150-375); Red Blood Count 5.14 M/mm3 (4.6-6.20); Red Cell Distribution Width 12.1 % (11.5-14.5); White Blood Count 6.9 K/mm3 (4.5-10.0)
[2024-05-27 08:15] LABS: Hemoglobin A1C 5.3 % (<5.7)
[2024-05-27 08:16] LABS: Alanine Aminotransferase 37 U/L (6-50); Albumin Level 4.3 g/dL (3.5-5.1); Alkaline Phosphatase 79 U/L (38-126); Anion Gap 9 mmol/L (4-12); Aspartate Amino Transferase 31 U/L (17-59); Bilirubin,Total 0.6 mg/dL (0.2-1.3); Blood Urea Nitrogen 22 mg/dL (9-20); Calcium 9.4 mg/dL (8.4-10.2); Carbon Dioxide 29 mmol/L (22-30); Chloride 103 mmol/L (98-107); Cholesterol 125 mg/dL (0-200); Estimated Glomerular Filt Rate > 60; Glucose 104 mg/dL (65-110); HDL Direct 35 mg/dL; Potassium 4.1 mmol/L (3.4-5.0); Sodium 141 mmol/L (137-145); Triglycerides 84 mg/dL (<150)
[2024-05-27 08:28] LABS: LDL Cholesterol Direct 67 mg/dL
[2024-05-27 08:41] LABS: Vitamin D 25 Hydroxy 54.9 ng/mL
== END 2024-05-27 07:29 | disposition home or self-care (01) ==
LOC: ANHLAB 07:30
PROVIDERS: PCP Family Medicine; Visit Provider Nurse Practitioner Family
DX: E78.5 Hyperlipidemia, unspecified (principal); I10 Essential (primary) hypertension; Z12.5 Encounter for screening for malignant neoplasm of prostate; R73.01 Impaired fasting glucose; E55.9 Vitamin D deficiency, unspecified
CPT/HCPCS: 36415; 80053; 80061; 82306; 83036; 84153; 84443; 85025; G0103

== ENCOUNTER 2024-09-22 10:01 | Outpatient (CLI) | payer OTHER, SELFPAY ==
--- OUTSIDE RECORDS SUMMARY | 2024-09-22 10:06 | XMS_ITS | Clinical Summary ---
Author Organization [facility] Address [address] [place]: Epic Prelude ADT FACUNDO KNIGHT [address] Care Team Providers Care Gas Specialist Name Role Phone Unavailable Primary Care Provider Unavailabl e Medications clotrimazole (LOTRIMIN) 1 % Cream Apply topically once every 12 hours for 2 weeks as directed 45 Gram 02/09/2022 5:04 PM ASSEMBLER CONVERTIBLE TOP 2 Active fluconazole (DIFLUCAN) 150 mg tablet Take 1 tablet (150 mg) by mouth today, then take 1 tablet (150 mg) by mouth in 72 hours 2 Tablet 01/29/2022 5:32 PM ASSEMBLER CONVERTIBLE TOP 2 Active pantoprazole (PROTONIX) 40 mg Tablet, [...] 72 HOURS 2 Tablet 05/03/2023 6:33 PM ASSEMBLER CONVERTIBLE TOP 4 Active clotrimazole (LOTRIMIN) 1 % Cream Apply to affected area(s) topically every 8 hours. 30 Gram 1 05/07/2023 4:55 PM ASSEMBLER CONVERTIBLE TOP 4 Active clonazePAM (KlonoPIN) 0.5 mg Tablet [...] FOR ANXIETY. 30 Tablet 04/14/2024 4:57 PM ASSEMBLER CONVERTIBLE TOP 5 Active pantoprazole (PROTONIX) 40 mg Tablet, Delayed Release (E.C.) Take 1 Tablet (40 mg) by mouth daily in the morning. 90 Tablet 2 07/31/2024 3:06 PM CDT 5 Active citalopram (CeleXA) 10 mg tablet Take 1 Tablet (10 mg) by mouth daily. 90 Tablet 1 09/08/2024 4:37 PM CDT 5 Active clonazePAM (KlonoPIN) 0.5 mg Tablet Take 0.5 Tablets (0.25 mg) by mouth 1 time daily as needed. 30 Tablet 09/19/2024 8:49 AM CDT 5 Active Encounters Date Type Department Care Team Description 08/25/2024 External Device Data [facility] Provider, Abstract [...] (1 of 3 - 19+ 3-dose series) 09/02 COLORECTAL SCREENING 09/26/2011 Colorectal Cancer Screening 09/26/2011 FIT-DNA Q 3 years 09/26/2011 FIT/FOBT Q 1 year 09/26/2011 Flex Sig/CT Colonography Q 5 years 09/26/2011 ZOSTER VACCINE (1 of 2) 2016 INFLUENZA VACCINE (#1) 2024 02/15/2022 Insurance RX [employer] (INTERNAL) [facility] [employer] [facility] [employer] RX [employer] (INTERNAL) [employer] RX [employer] DATA Medicare Part B
--- OUTSIDE RECORDS SUMMARY | 2024-09-22 10:06 | XMS_ITS | Clinical Summary ---
Author Organization [facility] Care Team Providers Care Senior Developer Name Role Phone Unavailable Primary Care Provider Unavailabl e Social History Tobacco Use Types Packs/Day Years Used Date Smoking Tobacco: Never Assessed Sex and Gender Information Value Date Recorded Sex Assigned at Not on file Legal Sex Male 8:06 AM MANAGER CALL CENTER Gender Identity Not on file Sexual Orientation [...]
--- OUTSIDE RECORDS SUMMARY | 2024-09-22 10:06 | XMS_ITS | Clinical Summary ---
Author Organization [facility] Address [address] [place] [address] Care Team Providers Care Meter Maker Name Role Phone Unavailable Primary Care Provider Unavailabl e Source Comments [facility],non-owned Affiliates and Associated Physician Practices is amultiple site organization consisting of ambulatory clinics and hospital sitesin [place], [place], [place] and [place]. This disclosure is being madepursuant to the Care Everywhere program and may not contain all information available regarding this patient. Last updated 17.[facility] Allergies No known active allergies Medications * Be aware that medications may not be up to date on this document. Alwaysverify current medications with the patient. simvastatin (ZOCOR) 10 MG tablet Take 10 mg by mouth at bedtime Active predniSONE (DELTASONE) 10 MG tabletIndicatio ns:wasp sting Take by mouth with food: 60mg on day 1, 50mg day 2, 40mg day 3, 30mg day 4, 20mg day 5, 10mg day 6 Reasons: wasp sting 21 tablet 08/11/2019 Active Social History Tobacco Use Types Packs/Day Years Used Date Smoking Tobacco: Never Smokeless Tobacco: Never Sex and Gender Information Value Date Recorded Sex Assigned at Not on file Legal Sex Male 2:06 PM CDT Gender Identity Not on file [...] 6:55 PM CDT Height 185.4 cm (6' 1) 08/11/2019 6:55 PM CDT Body Mass Index [...] 2016 SCREENING FOR DIABETES 08/11/2019 COVID-19 VACCINE (1 - 2023-2 5 season) 2023 DEPRESSION SCREENING 03/04/2024 INFLUENZA VACCINE (#1) 2024 HIB VACCINE Aged Out No longer eligi [...] patient's age to complete this topic Insurance [facility] * Guarantor: JAIRO JUNIOR Account Type Relation to Patient Date of Phone Billing Address Personal/Family [address] CARE SELF PAY NO INSURANCE Member Subscriber Plan / Payer (Ef fective for All Dates) Name:Jairo Junior Member ID:Not on file Relation to Subscriber:Not on file Name:JAIRO JUNIOR Subscriber ID:Not on file Address: [address] [address] Payer ID:Not on file Group ID:Not on file Type:Self Pay Address: [place], [place] * Guarantor: JAIRO JUNIOR Account Type Relation to Patient Date of Phone Billing Address Personal/Family [address] HEALTH CARE SELF PAY NO INSURANCE Member Subscriber Plan / Payer (Ef fective for All Dates) Name:Jairo Junior Member ID:Not on file Relation to Subscriber:Not on file Name:JAIRO JUNIOR Subscriber ID:Not on file Address: [address] [address] Payer ID:Not on file Group ID:Not on file Type:Self Pay Address: [place], [place] * Guarantor: JAIRO JUNIOR Account Type Relation to Patient Date of Phone Billing Address Personal/Family [address] SELF PAY NO INSURANCE Member Subscriber Plan / Payer (Ef fective for All Dates) Name:Jairo Junior Member ID:Not on file Relation to Subscriber:Not on file Name:JAIRO JUNIOR Subscriber ID:Not on file Address: [address] [address] Payer ID:Not on file Group ID:Not on file Type:Self Pay Address: [place], [place]
--- NOTE | 2024-09-22 11:30 | NEURO_ITS ---
Impression: # Complains of nocturnal intermittent numbness of hands. Non- diabetic. ? # Normal Nerve Conduction Study. ? # No significant abnormality to diagnose Carpal Tunnel Syndrome or ulnar neuropathy. ? # Normal needle/EMG exam. Nerve Conduction Studies ?Stim Site NR Peak (ms) P-T Amp (?V) Site1 Site2 Delta-P (ms) Dist (cm) Ketan (m/s) Left Median Anti Sensory (2-3nd Digit) Wrist ? 3.3 50.1 Wrist 2-3nd Digit 3.3 14.0 42 Wrist ? 3.3 23.2 Wrist 2-3nd Digit 3.3 14.0 42 Right Median Anti Sensory (2-3nd Digit) Wrist ? 3.0 49.0 Wrist 2-3nd Digit 3.0 14.0 47 Wrist ? 3.0 45.1 Wrist 2-3nd Digit 3.0 14.0 47 Left Radial Anti Sensory (Base 1st Digit) Wrist ? 2.1 32.3 Wrist Base 1st Digit 2.1 0.0 Right Radial Anti Sensory (Base 1st Digit) Wrist ? 2.8 16.2 Wrist Base 1st Digit 2.8 0.0 Left Ulnar Anti Sensory (5th Digit) Wrist ? 2.6 17.2 Wrist 5th Digit 2.6 14.0 54 Right Ulnar Anti Sensory (5th Digit) Wrist ? 2.6 19.3 Wrist 5th Digit 2.6 14.0 54 ?Stim Site NR Onset (ms) O-P Amp (mV) Site1 Site2 Delta-0 (ms) Dist (cm) Ketan (m/s) Left Median Motor (Abd Poll Brev) Wrist ? 3.2 2.7 Elbow Wrist 5.1 29.0 57 Elbow ? 8.3 8.0 Right Median Motor (Abd Poll Brev) Wrist ? 4.1 2.6 Elbow Wrist 5.7 30.0 53 Elbow ? 9.8 8.3 Left Ulnar Motor (Abd Dig Minimi) Wrist ? 2.7 4.2 A Elbow Wrist 5.6 32.0 57 A Elbow ? 8.3 2.4 B Elbow Wrist 4.1 23.0 56 B Elbow ? 6.8 2.4 Right Ulnar Motor (Abd Dig Minimi) Wrist ? 2.7 6.3 A Elbow Wrist 5.7 30.0 53 A Elbow ? 8.4 5.2 Electromyography ?Side Muscle Nerve Root Ins Act Fibs Amp Dur Recrt Comment Right 1stDorInt Ulnar C8-T1 Nml Nml Nml Nml Nml Right Ext Indicis Radial (Post Int) C7-8 Nml Nml Nml Nml Nml Right Ext Digitorum Radial (Post Int) C7-8 Nml Nml Nml Nml Nml Right BrachioRad Radial C5-6 Nml Nml Nml Nml Nml Right PronatorTeres Median C6-7 Nml Nml Nml Nml Nml Right Abd Poll Brev Median C8-T1 Nml Nml Nml Nml Nml Right ABD Dig Min Ulnar C8-T1 Nml Nml Nml Nml Nml Right FlexPolLong Median (Ant Int) C7-8 Nml Nml Nml Nml Nml Right Abd Poll Long Radial (Post Int) C7-8 Nml Nml Nml Nml Nml Left 1stDorInt Ulnar C8-T1 Nml Nml Nml Nml Nml Left Ext Indicis Radial (Post Int) C7-8 Nml Nml Nml Nml Nml Left Ext Digitorum Radial (Post Int) C7-8 Nml Nml Nml Nml Nml Left BrachioRad Radial C5-6 Nml Nml Nml Nml Nml Left PronatorTeres Median C6-7 Nml Nml Nml Nml Nml Left Abd Poll Brev Median C8-T1 Nml Nml Nml Nml Nml Left ABD Dig Min Ulnar C8-T1 Nml Nml Nml Nml Nml Left FlexPolLong Median (Ant Int) C7-8 Nml Nml Nml Nml Nml Left Abd Poll Long Radial (Post Int) C7-8 Nml Nml Nml Nml Nml
== END 2024-09-22 10:02 | disposition home or self-care (01) ==
LOC: ANHNEURO 10:03
PROVIDERS: PCP Family Medicine; Visit Provider Family Medicine
DX: R20.0 Anesthesia of skin (principal); R20.2 Paresthesia of skin
CPT/HCPCS: 95886; 95911

== ENCOUNTER 2024-12-23 07:49 | Outpatient (CLI) | payer OTHER, SELFPAY ==
--- OUTSIDE RECORDS SUMMARY | 2024-12-23 07:54 | XMS_ITS | Clinical Summary ---
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 Gender Identity Not on file Sexual Orientation Not on file Plan of Treatment Health Maintenance Due Date Last Done Comments Hepatitis C Virus (HCV) Screening 1966 TdaP Immunization 1966 Hepatitis B Immunization (1 of 3 - 19+ 3-dose series) 1985 Cologuard 09/26/2011 Colonoscopy 09/26/2011 Colorectal Cancer Screening 09/26/2011 Immunochemical Fecal Occult Blood 09/26/2011 Pneumococcal Immunization (5 0+ years) (1 of 1 - PCV) 2016 Zoster Immunization (1 of 2) 2016 Influenza Immunization (#1) 2024 SARS-COV-2 Immunization ( - season) 2024 Respiratory Syncytial Virus (RSV) Immunization (Adult) (1 - 1-dose 75+ series) 2041 Human Papillomavirus (HPV) Immunization Aged Out No longer eligible b ased on patient's age to complete this topic Meningococcal Immunization (ACWY) Aged Out No longer eligible based on patient's age to complete this topic Rotavirus Immunization Aged Out No lo nger eligible based on patient's age to complete this topic
--- OUTSIDE RECORDS SUMMARY | 2024-12-23 07:54 | XMS_ITS | Clinical Summary ---
Author Organization [facility] Address [address] 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 This disclosure is being madepursuant to the Care Everywhere program and may not contain all information available regarding this patient. Last updated 17.[facility] Allergies No known active allergies Medications * [...] of 2) 2016 SCREENING FOR DIABETES 08/11/2019 DEPRESSION SCREENING 03/04/2024 COVID-19 VACCINE (1 - 2023-2 5 season) 2024 INFLUENZA VACCINE (#1) 2024 HIB VACCINE Aged [...] patient's age to complete this topic Insurance [facility] * Guarantor: JAIRO JUNIOR Account Type Relation to Patient Date of Phone Billing Address Personal/Family [address] CARE SELF PAY NO INSURANCE Member Subscriber Plan / Payer (Ef fective for All Dates) Name:Jairo Junior Member ID:Not on file Relation to Subscriber:Not on file Name:JAIRO JUNIOR Subscriber ID:Not on file Address: [address] [address] Payer ID:Not on file Group ID:Not on file Type:Self Pay Address: [place], [place] * Guarantor: JAIRO JUNIOR Account Type Relation to Patient Date of Phone Billing Address Personal/Family [address] HEALTH CARE SELF PAY NO INSURANCE Member Subscriber Plan / Payer (Ef fective for All Dates) Name:Jairo Junior Member ID:Not on file Relation to Subscriber:Not on file Name:JAIRO JUNIOR Subscriber ID:Not on file Address: [address] [address] Payer ID:Not on file Group ID:Not on file Type:Self Pay Address: [place], [place] * Guarantor: JAIRO JUNIOR Account Type Relation to Patient Date of Phone Billing Address Personal/Family [address] SELF PAY NO INSURANCE Member Subscriber Plan / Payer (Ef fective for All Dates) Name:Jairo Junior Member ID:Not on file Relation to Subscriber:Not on file Name:JAIRO JUNIOR Subscriber ID:Not on file Address: [address] [address] Payer ID:Not on file Group ID:Not on file Type:Self Pay Address: [place]
--- OUTSIDE RECORDS SUMMARY | 2024-12-23 07:54 | XMS_ITS | Clinical Summary ---
Author Organization [facility] Address [address] 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 30 Tablet 5 3 Active nirmatrelvir-r itonavir (Paxlovid, EUA,) 300(150mg x 2)-100 mg oral [...] 72 HOURS 2 Tablet 05/03/2023 6:33 PM BAND CUTTER 4 Active clotrimazole (LOTRIMIN) 1 % Cream Apply to affected area(s) topically every 8 hours. 30 Gram 1 05/07/2023 4:55 PM BAND CUTTER 4 Active clonazePAM (KlonoPIN) 0.5 mg Tablet [...] FOR ANXIETY. 30 Tablet 04/14/2024 4:57 PM BAND CUTTER 5 Active pantoprazole (PROTONIX) 40 mg Tablet, Delayed Release (E.C.) Take 1 Tablet (40 mg) by mouth daily in the morning. 90 Tablet 2 07/31/2024 3:06 PM CDT 5 Active citalopram (CeleXA) 10 mg tablet Take 1 Tablet (10 mg) by mouth daily. 90 Tablet 1 12/12/2024 8:44 AM CDT 5 Active clonazePAM (KlonoPIN) 0.5 mg Tablet Take 0.5 Tablets (0.25 mg) by mouth 1 time daily as needed. 30 Tablet 09/19/2024 8:49 AM CDT 5 Active losartan (COZAAR) 50 mg tablet Take 1.5 Tablets (75 mg) by mouth daily. 145 Tablet 2 5 Active fluticasone propionate (FLONASE) 50 mcg/spray [place], Suspension nasal inhaler Administer 1 spray in each nostril twice daily 16 Gram 1 12/05/2024 10:25 AM CDT 5 Active methylPREDNISo lone (MEDROL DOSPACK) 4 mg Tablets, Dose Pack Take as directed on package 21 Each 12/05/2024 10:25 AM CDT Active amoxicillin-cl avulanate (AUGMENTIN) 875-125 mg tablet Take 1 Tablet by mouth every 12 hours for 7 days. 14 Tablet 12/05/2024 10:25 AM CDT 5 12/13/19 Immunizations Immunization Administration Dates Next Due INFLUENZA [...] 2016 INFLUENZA VACCINE (#1) 2024 02/15/2022 Insurance [employer] (INTERNAL) [facility] [facility] Medicare Part B
[2024-12-23 08:42] LABS: Hematocrit 48.7 % (42.0-52.0); Hemoglobin 16.7 g/dL (14.0-18.0); Immature Granulocyte Percent A 0.3 % (0-0.5); Lymphocytes Absolute Auto 1.42 K/mm3 (0.9-3.2); Mean Corpuscular HGB Conc 34.3 g/dl (32-36); Mean Corpuscular Hemoglobin 32.3 pg (26-34); Mean Corpuscular Volume 94.2 fl (80-100); Nucleated Red Blood Cells Absolute Auto 0.000 K/mm3 (0.0-0.012); Nucleated Red Blood Cells Perc 0.0 % (0.0-0.2); Platelet Count Result 178 k/mm3 (150-375); Red Blood Count 5.17 M/mm3 (4.6-6.20); White Blood Count 6.5 K/mm3 (4.5-10.0)
[2024-12-23 09:06] LABS: Alanine Aminotransferase 32 U/L (6-50); Albumin Level 4.2 g/dL (3.5-5.1); Alkaline Phosphatase 73 U/L (38-126); Anion Gap 8 mmol/L (4-12); Aspartate Amino Transferase 38 U/L (17-59); Bilirubin,Total 0.9 mg/dL (0.2-1.3); Blood Urea Nitrogen 20 mg/dL (9-20); Calcium 9.0 mg/dL (8.4-10.2); Carbon Dioxide 26 mmol/L (22-30); Chloride 103 mmol/L (98-107); Estimated Glomerular Filt Rate > 60; Glucose 92 mg/dL (65-110); Magnesium 2.2 mg/dL (1.6-2.3); Potassium 3.7 mmol/L (3.4-5.0); Sodium 137 mmol/L (137-145); Total Protein 7.0 g/dL (6.3-8.2)
[2024-12-23 09:39] LABS: Thyroid Stimulating Hormone Reflex 1.080 uIU/mL (0.465-4.68)
[2024-12-23 10:00] LABS: Vitamin B12 870.0 pg/mL (239-931)
== END 2024-12-23 07:50 | disposition home or self-care (01) ==
LOC: ANHLAB 07:51
PROVIDERS: PCP Family Medicine; Visit Provider Nurse Practitioner Family
DX: R53.83 Other fatigue (principal)
CPT/HCPCS: 36415; 80053; 82306; 82607; 83735; 84443; 85025

== ENCOUNTER 2025-01-27 15:11 | Outpatient (CLI) | payer OTHER, SELFPAY ==
--- NOTE | ~2025-01-27 | US_ITS ---
Clinical History: I65.22 - Occlusion and stenosis of left carotid artery Examination: US carotid duplex BI Comparison: 01/31/2024 Technique: Grayscale, color, duplex/spectral Doppler sonography carotid and vertebral arteries. Distal CCA and Peak ICA systolic velocities provided. Society of Radiologists in Ultrasound (SRU) consensus criteria utilized, indirectly assessing stenosis by velocities. Findings: Chronic occlusion left ICA Right side: CCA - 114 cm/sec. ICA - 97 cm/sec. ICA/CCA - 0.8 Left Side: CCA - 30 cm/sec. ICA -occluded Normal antegrade flow measured bilateral vertebral arteries. IMPRESSION: 1. No hemodynamically significant right ICA stenosis (i.e., if any stenosis, less than 50%). 2. Chronic occlusion left ICA. 3. Normal bilateral antegrade vertebral artery flow. Stenosis measured by Society of Radiologists in Ultrasound (SRU) criteria. Reviewed, dictated and finalized at location R. HATCHERY SUPERINTENDENT IMPRESSION: 1. No hemodynamically significant right ICA stenosis (i.e., if any stenosis, l ess than 50%). 2. Chronic occlusion left ICA. 3. Normal bilateral antegrade vertebral artery flow. Stenosis measured by Society of Radiologists in Ultrasound (SRU) criteria.
== END 2025-01-27 15:12 | disposition home or self-care (01) ==
LOC: MICIMG 15:12
PROVIDERS: PCP Internal Medicine Cardiovascular Disease; Visit Provider Internal Medicine Cardiovascular Disease
DX: I65.22 Occlusion and stenosis of left carotid artery (principal)
CPT/HCPCS: 93880